=== PATIENT | female | born 1985 | race Caucasian/White ===

== ENCOUNTER → 2017-01-09 | Outpatient (CLI) | payer BC ==
[~2017-01-09] MED LIST: LEVO-217 PO
== END | disposition home or self-care (01) ==
LOC: C.PATHSPEC 10:38
PROVIDERS: ATTEND Obstetrics & Gynecology
DX: N84.1 Polyp of cervix uteri (principal)

== ENCOUNTER → 2017-01-09 | Outpatient (CLI) | payer BC | END | disposition home or self-care (01) | LOC: C.PAPS 10:34 | PROVIDERS: ATTEND Obstetrics & Gynecology | DX: Z01.419 Encounter for gynecological examination (general) (routine) without abnormal findings (principal) ==

== ENCOUNTER → 2017-07-21 | Outpatient (CLI) | payer BC, OTHER ==
[2017-07-24 01:52] LABS: CHLAMYDIA TRACH RNA*** NOT DETECTED (NOT DETECTED); GC (NEIS GONORRHOEAE)RNA** NOT DETECTED (NOT DETECTED); TRICHOMONAS VAGINALIS RNA** NOT DETECTED (NOT DETECTED)
== END | disposition home or self-care (01) ==
LOC: C.LABSPEC 13:20
PROVIDERS: ATTEND Physician Assistant
DX: N94.10 Unspecified dyspareunia (principal)

== ENCOUNTER 2022-10-21 14:15 | Inpatient (IN) ==
[2022-10-21] MEDS ORDERED: OXYTOCIN 30 UNITS/500 ML BAG IV PRN ×2 (16:13)
[2022-10-21] MEDS ORDERED: LIDOCAINE 1% LOCAL 20 ML VIAL INFIL PRN (16:13)
[2022-10-21 17:17] LABS: Hematocrit (blood only) 36.7 % (37.0-47.0); Hemoglobin 12.6 g/dl (12.0-16.0); Mean Corpuscular Hemoglobin 30.7 pg (25.0-34.0); Mean Corpuscular Hgb Conc 34.3 g/dL (32.0-36.0); Mean Corpuscular Volume 89.3 fL (80.0-100.0); Mean Platelet Volume 10.5 fL (9.4-12.4); Platelet Count 217 K/uL (130-400); RDW Coefficient of Variation 14.6 % (11.5-14.5); RDW Standard Deviation 47.4 fL (36.4-46.3); Red Blood Count 4.11 M/uL (4.20-5.40); White Blood Count 7.75 K/ul (4.8-10.8)
[2022-10-21] MEDS: LACTATED RINGER'S 1,000 ML IV PRN ×2 (17:30→23:32)
--- NOTE | 2022-10-21 18:34 | History & Physical Report ---
Date of Service October 21, 2022 Assessment & Plan (1) Insulin controlled gestational diabetes mellitus (GDM) during : (2) Hypothyroidism during : (3) resulting from in vitro fertilization, antepartum: Plan 36 yo at 39 6/7 wga presents for IOL for A2gDm VSS Fetus cat 1 Labor - will start with marshall/pit, 35cc marshall placed after verbal consent obtained. Will start pit as well A2GDM - will start w/ BG q2, q1 in active labor GBS neg epidural prn Admission and Anticipated Discharge Date Admission Date: October 21, 2022 History of Present Illness Chief Complaint: IOL Primary Care Provider: Katherin Bee, 36 yo at 39 6/7 wga presents for IOL for A2GDM. +FM; denies ctx, LOF, VB PNI: A2GDM IVF/ICSI Hx thyroidectomy AMA Past CALL C[facility] DIRECTOR Hx: G1 2020 SAB G2 2020 SAB G3 2021 SAB G4 current denies hx STIs 03/2022 neg cotest, hx LEEP Allergies Allergy/AdvReac Type Severity Reaction Status Date / Time Penicillins Allergy Unknown Rash Verified 10/21/22 16:50 adhesive Allergy Redness of Verified 10/21/22 16:50 Skin Home Medications Medication Instructions Recorded Confirmed Type prenat.vits,tim,lke-veud-sgdnn 1 tab PO DAILY 03/28/21 10/21/22 History cholecalciferol (vitamin D3) PO 06/19/21 10/20/22 History ascorbic acid (vitamin C) PO 03/24/22 10/20/22 History magnesium PO 03/24/22 10/20/22 History super selenium complex PO 03/24/22 10/20/22 History levothyroxine 137 mcg tablet 137 mcg PO .COMPLEX 90 days #45 04/18/22 10/21/22 Rx tabs blood sugar diagnostic (OneTouch #150 ea 05/26/22 10/20/22 Rx Verio test strips) blood-glucose meter (OneTouch #1 ea 05/26/22 10/20/22 Rx Verio Reflect Meter) lancets 33 gauge (OneTouch Delica #150 ea 05/26/22 10/20/22 Rx Lancets) acetone (urine) test (Ketone Urine #50 ea 05/28/22 10/20/22 Rx Test strips) insulin syringe-needle U-100 0.5 #100 ea 07/28/22 10/20/22 Rx mL 30 gauge x 1/2" (BD Insulin Syringe Ultra-Fine) insulin NPH isoph U-100 human 100 See Rx Instructions subcut QAM #2 09/19/22 10/20/22 Rx unit/mL subcutaneous suspension vials (Humulin N NPH U-100 Insulin (isophane susp)) levothyroxine 125 mcg tablet 125 mcg PO .COMPLEX 90 days #45 10/10/22 10/21/22 Rx tabs Patient History Medical History Acne vulgaris Hypothyroidism Miscarriage Ovarian cyst Overweight Papanicolaou smear of cervix with low grade squamous intraepithelial lesion (LGSIL) PCOS (polycystic ovarian syndrome) Thyroid disease Vaginal candidiasis Surgical History H/O colposcopy with cervical biopsy (~2010) H/O LEEP (~2010) H/O oral surgery H/O total thyroidectomy (~09/17/04) Family History Family/Other Breast cancer Ovarian cancer Prostate cancer Father Myocardial infarction Other Diabetes Hepatitis Denies family history of Colonic polyp Social History Smoking Status: Never smoker Hx Alcohol Use: No Hx Substance Use: No Preferred Language: Kinyarwanda Communication Ability: Effective Inventory Coordinator Required: No Beliefs That Will Affect Care: None marital status: marital status details: Maxi (30) [phone] Current Living Situation: Spouse Current Living Situation Comment: lives with Spouse, 2 dogs. 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 Other Information That Helps Us Care for You: No Feels Safe at Home: Yes Safety Concerns: Feels Safe At This Time Assistive Devices: None Physical Exam Genitourinary: OB Exam Abdomen: + vertex (confirmed by bsus) and + estimated weight (7-8) Manual OB Exam: + cervical dilation fingertip, + cervical effacement 50% and + station -2 OB Exam Monitor Tracing: + external FHT monitor used, + external uterine monitor used (q5) and + category I (125/mod/+accel/-decel) Results & Data ([facility]) Vital Signs (Past 12 Hours) Vital Signs Temp Pulse Resp BP 10/21/22 16:15 98.6 F 20 10/21/22 16:59 84 10/21/22 16:59 126/82 10/21/22 16:10 94 H 132/89 Laboratory Results OB Labs: Blood Type O Positive 03/27/22 Antibody Screen NEGATIVE 03/27/22 Hemoglobin 12.1 g/dl (12.0-16.0) 07/31/22 Hematocrit 35.4 % (34.1-44.9) 07/31/22 Mean Corpuscular Volume 91.4 fL (80.0-100.0) 03/27/22 Platelet Count 378 K/uL (130-400) 03/27/22 Varicella-Zoster IgG Antibody 864.50 index 07/02/21 Rubella IgG Antibody Immune (Immune) 03/27/22 Rapid Plasma Reagin Nonreactive (Nonreactive) 03/27/22 Hepatitis B Surface Antigen Neg (Neg) 07/02/21 Hepatitis B Surface Antigen. NON-REACTIVE (NON-REACTIVE) 03/27/22 Hepatitis C Antibody Neg (Neg) 07/02/21 Hepatitis C Antibody (EIA) NON-REACTIVE (NON-REACTIVE) 03/27/22 HIV (1&2) Ab and P24 Ag, 4th Gener Neg (Neg) 07/02/21 HIV (1&2) Ag and Ab Confirmation NON-REACTIVE (NON-REACTIVE) 03/27/22 Glucose 1 Hour 50 gm Load 164 mg/dl (70-130) H 05/08/22 Maternal Serum Alpha Fetoprotein 28.4 ng/mL 05/08/22 OB Optional Labs: Chlamydia trachomatis RNA NOT DETECTED (NOT DETECTED) 03/27/22 Neisseria gonorrhoeae RNA NOT DETECTED (NOT DETECTED) 03/27/22 Thyroid Stimulating Hormone (TSH) 0.957 uIu/ml (0.300-4.500) 08/04/22 Alpha Fetoprotein Triple Screen SEE NOTE 05/08/22 Labs Reviewed: Pt negative for CF/SMA (09/02/21) low risk panorama neg afp failed 2 hr gtt at 16 weeks. gbs neg--ak Diagnostic Findings 09/23 EFW 72% post plac Coding Level of Care Code None Diagnoses Insulin controlled gestational diabetes mellitus (GDM) during O24.414 Hypothyroidism during O99.280; E03.9 resulting from in vitro fertilization, antepartum O09.819
[2022-10-21 20:54] LABS: Albumin Globulin Ratio 1.3 (0.9-2); Albumin Level 3.5 gm/dl (3.4-5.0); BUN Creatinine Ratio 15.1 (10-20); Bilirubin,Total 0.4 mg/dl (0.2-1.0); Calcium 8.7 mg/dl (8.5-10.1); Creatinine Clr Calc Pharmacy 119.8 ml/min; Est GFR (African American) 122.8 ml/min; Globulin 2.8 gm/dl (2.5-4.0); Total Protein 6.3 gm/dl (6.0-8.3)
[2022-10-21 21:33] LABS: Protein Creatinine Ratio Urine 0.2 (0-0.2)
--- NOTE | 2022-10-21 23:13 | Labor Progress Brief Note ---
Date of Service October 21, 2022 Subjective getting uncomfortable w/ balloon Assessment & Plan (1) Insulin controlled gestational diabetes mellitus (GDM) during : (2) Hypothyroidism during : (3) resulting from in vitro fertilization, antepartum: Plan 36 yo at 39 6/7 wga presents for IOL for A2gDm VSS Fetus cat 1 Labor - marshall in place but coming out, feels like this is more painful than ctx themselves. Desires to try stadol A2GDM - will start w/ BG q2, q1 in active labor Elevated BPs after marshall bulb, suspect pain related as intermittent, labs wnl. Continue to monitor GBS neg epidural prn Admission and Anticipated Discharge Date Admission Date: October 21, 2022 Physical Exam Genitourinary: Manual OB Exam: + cervical dilation fingertip, + cervical effacement 50% and + station -2 OB Exam Monitor Tracing: + external FHT monitor used, + external uterine monitor used (q5) and + category I (125/mod/+accel/-decel) balloon partially coming through cervix Results & Data ([facility]) Vital Signs (Past 12 Hours) Vital Signs Temp Pulse Resp BP 10/21/22 19:15 97.9 F 20 10/21/22 16:15 98.6 F 20 10/21/22 23:00 18 10/21/22 23:00 98.1 F 18 10/21/22 23:00 18 10/21/22 23:00 98.1 F 18 10/21/22 22:28 18 10/21/22 22:28 18 10/21/22 22:27 72 10/21/22 22:27 135/84 10/21/22 21:29 18 10/21/22 21:29 18 10/21/22 21:28 68 10/21/22 21:28 139/91 10/21/22 20:18 71 10/21/22 20:18 137/87 10/21/22 20:04 72 10/21/22 20:04 139/103 H 10/21/22 19:46 74 10/21/22 19:46 136/90 10/21/22 19:31 76 10/21/22 19:31 135/88 10/21/22 19:15 81 10/21/22 19:15 153/96 H 10/21/22 18:42 81 10/21/22 18:42 143/90 H 10/21/22 16:59 84 10/21/22 16:59 126/82 10/21/22 16:10 94 H 132/89 Coding Level of Care Code None Diagnoses Insulin controlled gestational diabetes mellitus (GDM) during O24.414 Hypothyroidism during O99.280; E03.9 resulting from in vitro fertilization, antepartum O09.819
[2022-10-21] MEDS: BUTORPHANOL TARTRATE 1 MG/ML VIAL IV PRN (23:29)
[2022-10-22] MEDS: BUTORPHANOL TARTRATE 1 MG/ML VIAL IV PRN (03:42)
[2022-10-22] MEDS: LACTATED RINGER'S 1,000 ML IV PRN ×3 (07:02→18:54)
--- NOTE | 2022-10-22 07:36 | Labor Progress Brief Note ---
Date of Service October 22, 2022 Subjective Feeling better now that balloon was out, pit was up to 18 and still sleeping Assessment & Plan (1) Insulin controlled gestational diabetes mellitus (GDM) during : (2) Hypothyroidism during : (3) resulting from in vitro fertilization, antepartum: Plan 36 yo at 39 6/7 wga presents for IOL for A2gDm VSS Fetus cat 1 Labor - once marshall fell out, pit increased to 18 but ctx spaced out and so pit break was given. STarted back up and now at 6, continue induction A2GDM - will start w/ BG q2, q1 in active labor Elevated BPs after marshall bulb, suspect pain related as intermittent, labs wnl. Now normal after marshall out GBS neg epidural prn Admission and Anticipated Discharge Date Admission Date: October 21, 2022 Physical Exam Genitourinary: Manual OB Exam: + cervical dilation (2-3), + cervical effacement 50% and + station -2 OB Exam Monitor Tracing: + external FHT monitor used, + external uterine monitor used (irreg) and + category I (125/mod/+accel/-decel) Results & Data ([facility]) Vital Signs (Past 12 Hours) Vital Signs Temp Pulse Resp BP Pulse Ox 10/22/22 07:31 90 126/80 10/22/22 07:17 92 H 128/77 10/22/22 06:27 80 116/78 10/22/22 05:56 91 H 99 10/22/22 05:51 81 97 10/22/22 05:52 93 H 92 10/22/22 05:46 82 97 10/22/22 05:41 80 96 10/22/22 05:36 81 97 10/22/22 05:31 80 98 10/22/22 05:27 82 128/79 10/22/22 05:26 90 98 10/22/22 05:21 76 98 10/22/22 05:16 79 97 10/22/22 05:11 81 98 10/22/22 05:08 97 H 92 10/22/22 05:06 89 99 10/22/22 05:01 94 H 98 10/22/22 04:56 89 97 10/22/22 04:51 88 97 10/22/22 04:46 86 97 10/22/22 04:41 83 97 10/22/22 04:36 84 97 03/01/23 04:31 82 97 10/22/22 04:29 16 10/22/22 04:29 16 10/22/22 04:28 80 101/63 10/22/22 04:26 83 97 10/22/22 04:21 86 97 10/22/22 04:16 84 96 10/22/22 04:11 81 96 10/22/22 04:06 85 97 10/22/22 04:01 84 97 10/22/22 04:00 16 10/22/22 04:00 16 10/22/22 03:56 79 97 10/22/22 03:27 75 127/82 10/22/22 02:50 18 10/22/22 02:50 98.1 F 18 10/22/22 02:33 106 H 100 10/22/22 02:28 83 97 10/22/22 02:26 81 132/84 10/22/22 02:23 96 H 100 10/22/22 02:18 87 98 10/22/22 02:13 85 97 10/22/22 02:08 95 H 99 10/22/22 02:03 84 96 10/22/22 01:58 83 99 10/22/22 01:53 81 97 10/22/22 01:48 82 97 10/22/22 01:43 81 97 10/22/22 01:38 76 97 10/22/22 01:33 84 97 10/22/22 01:28 81 97 10/22/22 01:27 72 16 118/65 10/22/22 01:23 82 97 10/22/22 01:18 77 97 10/22/22 01:13 86 96 10/22/22 01:08 80 97 10/22/22 01:03 85 97 10/22/22 00:58 92 H 98 10/22/22 00:53 78 96 10/22/22 00:48 85 98 10/22/22 00:43 79 96 10/22/22 00:38 82 96 10/22/22 00:33 80 96 10/22/22 00:30 16 10/22/22 00:30 16 10/22/22 00:28 84 97 10/22/22 00:27 79 128/71 10/22/22 00:23 89 97 10/22/22 00:18 81 97 10/22/22 00:13 86 97 10/22/22 00:08 80 96 10/22/22 00:03 91 H 97 10/21/22 23:58 96 10/21/22 23:58 82 10/21/22 23:53 97 10/21/22 23:53 80 10/21/22 23:48 97 10/21/22 23:48 79 10/21/22 23:43 96 10/21/22 23:43 80 10/21/22 23:38 95 10/21/22 23:38 83 10/21/22 23:33 98 10/21/22 23:33 78 10/21/22 23:28 98 10/21/22 23:28 77 10/21/22 23:26 78 10/21/22 23:26 137/86 10/21/22 23:00 18 10/21/22 23:00 98.1 F 18 10/21/22 23:00 18 10/21/22 23:00 98.1 F 18 10/21/22 22:28 18 10/21/22 22:28 18 10/21/22 22:27 72 10/21/22 22:27 135/84 10/21/22 21:29 18 10/21/22 21:29 18 10/21/22 21:28 68 10/21/22 21:28 139/91 10/21/22 20:18 71 10/21/22 20:18 137/87 10/21/22 20:04 72 10/21/22 20:04 139/103 H 10/21/22 19:46 74 10/21/22 19:46 136/90 Coding Level of Care Code None Diagnoses Insulin controlled gestational diabetes mellitus (GDM) during O24.414 Hypothyroidism during O99.280; E03.9 resulting from in vitro fertilization, antepartum O09.819
[2022-10-22] MEDS ORDERED: SODIUM CHLORIDE 0.9% INJ 10 ML VIAL ONE (11:49)
[2022-10-22] MEDS ORDERED: BUPIVACAINE 0.25% 30 ML VIAL ONE (11:49)
[2022-10-22] MEDS ORDERED: ePHEDrine sulfate 50 MG/ML AMP ONE (11:49)
[2022-10-22] MEDS ORDERED: LIDOCAINE 2%/EPINEPHRINE 1:200,000 20 ML SDV ONE (11:49)
[2022-10-22] MEDS ORDERED: fentaNYL citrate 100 MCG/2 ML VIAL ONE ×6 (11:49→23:40)
[2022-10-22] MEDS ORDERED: fentaNYL 2MCG/ML ROPIVACAINE 1.25MG/ML 100 ML BAG EPI ONE (11:50)
--- NOTE | 2022-10-22 12:34 | Anesthesiology Consultation ---
Date of Service October 22, 2022 Assessment & Plan Chart Review Chart Review: Acceptable Risk for Labor Epidural Consults Requested none History Height/Weight Height: 5 ft 5 in Weight: 92.533 kg Allergies Allergy/AdvReac Type Severity Reaction Status Date / Time Penicillins Allergy Unknown Rash Verified 10/21/22 16:50 adhesive Allergy Redness of Verified 10/21/22 16:50 Skin Medications Home Medications Medication Instructions Recorded Confirmed Last Taken prenat.vits,tim,ezf-abbc-ymyul 1 tab PO DAILY 03/28/21 10/21/22 10/21/22 12:00 cholecalciferol (vitamin D3) PO 06/19/21 10/20/22 10/21/22 12:00 ascorbic acid (vitamin C) PO 03/24/22 10/20/22 10/21/22 12:00 magnesium PO 03/24/22 10/20/22 10/21/22 12:00 super selenium complex PO 03/24/22 10/20/22 10/21/22 12:00 levothyroxine 137 mcg tablet 137 mcg PO .COMPLEX 90 days #45 04/18/22 10/21/22 10/20/22 07:00 tabs blood sugar diagnostic (OneTouch #150 ea 05/26/22 10/20/22 Unknown Verio test strips) blood-glucose meter (OneTouch #1 ea 05/26/22 10/20/22 Unknown Verio Reflect Meter) lancets 33 gauge (OneTouch Delica #150 ea 05/26/22 10/20/22 Unknown Lancets) acetone (urine) test (Ketone Urine #50 ea 05/28/22 10/20/22 Unknown Test strips) insulin syringe-needle U-100 0.5 #100 ea 07/28/22 10/20/22 Unknown mL 30 gauge x 1/2" (BD Insulin Syringe Ultra-Fine) insulin NPH isoph U-100 human 100 See Rx Instructions subcut QAM #2 09/19/22 10/20/22 10/20/22 21:00 unit/mL subcutaneous suspension vials (Humulin N NPH U-100 Insulin (isophane susp)) levothyroxine 125 mcg tablet 125 mcg PO .COMPLEX 90 days #45 10/10/22 10/21/22 10/21/22 07:00 tabs Active Medications Generic Name Dose Route Start Last Admin Trade Name Lyndon PRN Reason Stop Dose Admin Lactated Ringer's 1,000 mls @ 125 mls/hr 10/21/22 16:13 10/22/22 12:28 Lr IV 10/23/22 16:12 125 mls/hr .Q8H PRN Infusion L&D Protocol Protocol Oxytocin 30 units in 500 mls @ 16 mls/hr 10/21/22 16:13 10/22/22 11:05 Pitocin IV 10/23/22 16:12 0.96 units/hr .Q24H PRN 16 mls/hr Labor Induction/Augmentation Titration Protocol 0.96 UNITS/HR Past Medical History Medical History Acne vulgaris Hypothyroidism Miscarriage Ovarian cyst Overweight Papanicolaou smear of cervix with low grade squamous intraepithelial lesion (LGSIL) PCOS (polycystic ovarian syndrome) Thyroid disease Vaginal candidiasis Past Family History Family History Family/Other Breast cancer Ovarian cancer Prostate cancer Father Myocardial infarction Other Diabetes Hepatitis Denies family history of Colonic polyp Past Surgical History Surgical History H/O colposcopy with cervical biopsy (~2010) H/O LEEP (~2010) H/O oral surgery H/O total thyroidectomy (~09/17/04) Social History Smoking Status: Never smoker Hx Alcohol Use: No Hx Substance Use: No Physical Exam Vital Signs Last Vital Signs Temp 36.6 C 10/22/22 10:18 Pulse 111 H 10/22/22 12:31 Resp 20 10/22/22 11:00 BP 127/77 10/22/22 12:29 Pulse Ox 98 10/22/22 12:31 Testing Laboratory Results 10/21/22 16:34 10/21/22 20:17 10/22/22 10/22/22 10/22/22 07:34 07:06 05:26 POC Glucose 76 64 L* 82 10/22/22 10/22/22 10/22/22 03:31 02:44 00:57 POC Glucose 100 H 68 L* 72
[2022-10-22] MEDS ORDERED: NALBUPHINE HCL INJ 10 MG/ML AMP IV PRN (12:36)
[2022-10-22] MEDS ORDERED: diphenhydrAMINE 50 MG/ML VIAL IV PRN (12:36)
[2022-10-22] MEDS ORDERED: fentaNYL 2MCG/ML ROPIVACAINE 1.25MG/ML 100 ML BAG EPI PRN (12:36)
[2022-10-22] MEDS ORDERED: ePHEDrine sulfate 50 MG/ML AMP IV PRN (12:36)
[2022-10-22] MEDS ORDERED: NALOXONE HCL 0.4 MG/1 ML VIAL/CARP IV PRN (12:36)
[2022-10-22] MEDS ORDERED: NALOXONE HCL 1 MG in SODIUM CHLORIDE 0.9% 1000ML 1,000 ML IV PRN (12:36)
--- NOTE | 2022-10-22 14:38 | Labor Progress Brief Note ---
Date of Service October 22, 2022 Subjective patient now comfortable with epidural pitocin at 16 milliunits cervix 4/80/-2 contractions not recording well. IUPC placed without difficulty Review of Systems All systems reviewed & are unremarkable except as noted in HPI & below Assessment & Plan Admission and Anticipated Discharge Date Admission Date: October 21, 2022 Physical Exam Constitutional: WD/WN, vitals as above Psychiatric: A+Ox3, euthymic affect Genitourinary: OB Exam Abdomen: + vertex and + irregular contractions Manual OB Exam: + cervical dilation 4 cm, + cervical effacement 80% and + station -2 OB Exam Monitor Tracing: + external FHT monitor used, + external uterine monitor used, + category I and + normal FHT variability Results & Data ([facility]) Vital Signs (Past 12 Hours) Vital Signs Temp Pulse Resp BP Pulse Ox 10/22/22 14:31 100 H 99 10/22/22 14:26 88 98 10/22/22 14:21 86 99 10/22/22 14:19 104 H 89 L 10/22/22 14:20 93 H 114/74 10/22/22 14:16 96 H 98 10/22/22 14:11 97 H 96 10/22/22 14:06 83 98 10/22/22 14:05 98.6 F 98 H 20 112/69 10/22/22 14:01 86 98 10/22/22 13:56 95 H 98 10/22/22 13:51 92 H 96 10/22/22 13:50 101 H 128/81 10/22/22 13:46 95 H 98 10/22/22 13:41 88 97 10/22/22 13:36 88 99 10/22/22 13:34 93 H 129/80 10/22/22 13:31 89 98 10/22/22 13:26 89 98 10/22/22 13:21 98 10/22/22 13:21 88 10/22/22 13:21 81 121/77 10/22/22 13:16 103 H 97 10/22/22 13:11 94 H 98 10/22/22 13:06 98 10/22/22 13:06 95 H 10/22/22 13:06 97 H 120/86 10/22/22 13:01 83 98 10/22/22 12:56 98 H 99 10/22/22 12:51 100 H 98 10/22/22 12:50 100 H 18 125/80 10/22/22 12:46 93 H 99 10/22/22 12:38 18 10/22/22 12:38 98.2 F 18 10/22/22 12:41 93 H 98 10/22/22 12:36 106 H 97 10/22/22 12:34 90 121/73 10/22/22 12:31 111 H 98 10/22/22 12:29 104 H 127/77 10/22/22 12:26 106 H 98 10/22/22 12:23 93 H 128/74 10/22/22 12:21 98 10/22/22 12:21 102 H 10/22/22 12:21 97 H 130/83 10/22/22 12:19 91 H 135/80 10/22/22 12:16 96 H 99 10/22/22 12:17 78 141/87 H 10/22/22 12:11 93 H 98 10/22/22 12:10 90 91 10/22/22 12:06 97 H 99 10/22/22 12:04 89 94 10/22/22 12:01 102 H 99 10/22/22 11:59 96 H 146/88 H 10/22/22 11:56 94 10/22/22 11:56 99 H 10/22/22 11:56 97 H 93 10/22/22 11:00 20 10/22/22 11:00 20 10/22/22 10:00 20 10/22/22 10:00 20 10/22/22 10:26 81 129/91 10/22/22 10:18 20 10/22/22 10:18 97.9 F 20 10/22/22 09:26 83 114/70 10/22/22 08:27 81 18 123/80 10/22/22 07:31 90 126/80 10/22/22 07:17 98.4 F 92 H 20 128/77 10/22/22 06:27 80 116/78 10/22/22 05:56 91 H 99 10/22/22 05:51 81 97 10/22/22 05:52 93 H 92 10/22/22 05:46 82 97 10/22/22 05:41 80 96 10/22/22 05:36 81 97 10/22/22 05:31 80 98 10/22/22 05:27 82 128/79 10/22/22 05:26 90 98 10/22/22 05:21 76 98 10/22/22 05:16 79 97 10/22/22 05:11 81 98 10/22/22 05:08 97 H 92 10/22/22 05:06 89 99 10/22/22 05:01 94 H 98 10/22/22 04:56 89 97 10/22/22 04:51 88 97 10/22/22 04:46 86 97 10/22/22 04:41 83 97 10/22/22 04:36 84 97 10/22/22 04:31 82 97 10/22/22 04:29 16 10/22/22 04:29 16 10/22/22 04:28 80 101/63 10/22/22 04:26 83 97 10/22/22 04:21 86 97 10/22/22 04:16 84 96 10/22/22 04:11 81 96 10/22/22 04:06 85 97 10/22/22 04:01 84 97 10/22/22 04:00 16 10/22/22 04:00 16 10/22/22 03:56 79 97 10/22/22 03:27 75 127/82 10/22/22 02:50 18 10/22/22 02:50 98.1 F 18 Coding Level of Care Code None Diagnoses
[2022-10-22] MEDS: LEVOTHYROXINE SODIUM 137 MCG TABLET PO SCH (16:56)
[2022-10-22] MEDS ORDERED: Nursing to Pharmacy Communication SCH (17:15)
--- NOTE | 2022-10-22 17:48 | Communication Note ---
Date of Service: October 22, 2022 pt c/o pain. Epidural bolused with 2% lidocaine 5cc plus fentanyl 100mcg
[2022-10-22] MEDS ORDERED: ONDANSETRON INJ 2 MG/ML 2 ML VIAL IV PRN (18:46)
--- NOTE | 2022-10-22 20:47 | Labor Progress Brief Note ---
Date of Service October 22, 2022 Subjective patient comfortable with epidural analgesia. pitocin just raised to 30 mu and contraction strength and pattern are still not adequate based on IUPC. contractions continue to be sporadic without any consistent pattern.sometimes spacing to 7-10 minutes apart with inadequate [place] units. cervix exam-5cm/100/-2 with molding. FHT's have been reassuring and category 1 with occasional quick mild variables. will place marshall catheter to keep bladder draining. I suspect that this is an LGA baby preventing adequate contraction strength to produce cervical dilation. if no appreciable change in contraction pattern/strength/dilation in the next hour, will proceed with LTCS. patient and her are agreeable with the current plan. Assessment & Plan Admission and Anticipated Discharge Date Admission Date: October 21, 2022 Results & Data ([facility]) Vital Signs (Past 12 Hours) Vital Signs Temp Pulse Resp BP Pulse Ox 10/22/22 19:00 98.6 F 18 10/22/22 20:37 86 137/92 10/22/22 20:36 92 H 98 10/22/22 20:32 85 93 10/22/22 20:31 83 98 10/22/22 20:26 86 97 10/22/22 20:21 96 10/22/22 20:21 84 10/22/22 20:21 77 128/80 10/22/22 20:16 87 99 10/22/22 20:11 93 H 97 10/22/22 20:10 92 H 93 10/22/22 20:06 78 100 10/22/22 20:05 82 119/76 10/22/22 20:04 78 92 10/22/22 20:01 82 98 10/22/22 19:59 85 92 10/22/22 19:56 87 99 10/22/22 19:51 97 10/22/22 19:51 78 10/22/22 19:51 75 124/78 10/22/22 19:46 79 97 10/22/22 19:41 79 96 10/22/22 19:36 95 10/22/22 19:36 79 10/22/22 19:36 78 118/79 10/22/22 19:31 85 98 10/22/22 19:29 76 94 10/22/22 19:26 81 98 10/22/22 19:21 97 10/22/22 19:21 80 10/22/22 19:22 86 92 10/22/22 19:21 77 131/78 10/22/22 19:16 86 100 10/22/22 19:13 83 93 10/22/22 19:11 84 100 10/22/22 19:06 99 10/22/22 19:06 82 10/22/22 19:06 81 120/76 10/22/22 19:01 81 98 10/22/22 18:56 82 100 10/22/22 18:51 82 99 10/22/22 18:52 82 124/84 10/22/22 18:46 100 10/22/22 18:46 88 10/22/22 18:46 86 93 10/22/22 18:41 88 99 10/22/22 18:36 104 H 99 10/22/22 18:37 107 H 92 10/22/22 18:35 86 135/77 10/22/22 18:31 105 H 100 10/22/22 18:26 98 H 100 10/22/22 18:21 97 H 99 10/22/22 18:22 96 H 138/83 10/22/22 18:16 96 H 99 10/22/22 18:11 94 H 100 10/22/22 18:06 104 H 136/90 99 10/22/22 18:01 100 H 100 10/22/22 17:56 96 H 100 10/22/22 17:52 119 H 92 10/22/22 17:51 110 H 100 10/22/22 17:50 94 H 129/71 10/22/22 17:48 113 H 133/85 10/22/22 17:46 99 10/22/22 17:46 81 10/22/22 17:46 81 137/86 10/22/22 17:41 91 H 99 10/22/22 17:36 86 97 10/22/22 17:37 80 131/75 10/22/22 17:33 89 92 10/22/22 17:31 80 98 10/22/22 17:26 80 97 10/22/22 17:21 90 138/90 98 10/22/22 17:16 85 99 10/22/22 17:11 84 99 10/22/22 17:07 104 H 90 10/22/22 17:06 86 98 03//23 17:05 83 20 134/85 10/22/22 17:01 97 10/22/22 17:01 81 10/22/22 17:01 89 91 10/22/22 16:56 83 99 10/22/22 16:51 81 130/80 98 10/22/22 16:46 82 100 10/22/22 16:41 92 H 98 10/22/22 16:36 98 10/22/22 16:36 84 10/22/22 16:36 76 142/77 H 10/22/22 16:31 82 98 10/22/22 16:26 86 98 10/22/22 16:12 20 10/22/22 16:12 98.8 F 20 10/22/22 16:21 88 98 10/22/22 16:20 75 131/87 10/22/22 16:16 76 98 10/22/22 16:11 80 99 10/22/22 16:06 73 99 10/22/22 16:05 72 125/86 10/22/22 16:01 75 98 10/22/22 15:56 87 98 10/22/22 15:51 82 98 10/22/22 15:50 78 131/93 10/22/22 15:46 87 98 10/22/22 15:41 85 97 10/22/22 15:36 88 97 10/22/22 15:37 86 93 10/22/22 15:35 78 129/81 10/22/22 15:31 82 97 10/22/22 15:26 92 H 98 10/22/22 15:23 84 94 10/22/22 15:21 82 95 10/22/22 15:20 80 111/73 10/22/22 15:16 86 96 10/22/22 15:11 83 97 10/22/22 15:06 85 97 10/22/22 15:05 85 117/73 10/22/22 15:01 92 H 96 10/22/22 14:56 96 H 99 10/22/22 14:51 96 H 96 10/22/22 14:50 83 18 119/75 10/22/22 14:46 94 H 100 10/22/22 14:41 89 100 10/22/22 14:36 84 89 L 10/22/22 14:35 88 114/74 0301/23 14:31 100 H 99 10/22/22 14:26 88 98 10/22/22 14:21 86 99 10/22/22 14:19 104 H 89 L 10/22/22 14:20 93 H 114/74 10/22/22 14:16 96 H 98 10/22/22 14:11 97 H 96 10/22/22 14:06 83 98 10/22/22 14:05 98.6 F 98 H 20 112/69 10/22/22 14:01 86 98 10/22/22 13:56 95 H 98 10/22/22 13:51 92 H 96 10/22/22 13:50 101 H 128/81 10/22/22 13:46 95 H 98 10/22/22 13:41 88 97 10/22/22 13:36 88 99 10/22/22 13:34 93 H 129/80 10/22/22 13:31 89 98 10/22/22 13:26 89 98 10/22/22 13:21 98 10/22/22 13:21 88 10/22/22 13:21 81 121/77 10/22/22 13:16 103 H 97 10/22/22 13:11 94 H 98 10/22/22 13:06 98 10/22/22 13:06 95 H 10/22/22 13:06 97 H 120/86 10/22/22 13:01 83 98 10/22/22 12:56 98 H 99 10/22/22 12:51 100 H 98 10/22/22 12:50 100 H 18 125/80 10/22/22 12:46 93 H 99 10/22/22 12:38 18 10/22/22 12:38 98.2 F 18 10/22/22 12:41 93 H 98 10/22/22 12:36 106 H 97 10/22/22 12:34 90 121/73 10/22/22 12:31 111 H 98 10/22/22 12:29 104 H 127/77 10/22/22 12:26 106 H 98 10/22/22 12:23 93 H 128/74 10/22/22 12:21 98 10/22/22 12:21 102 H 10/22/22 12:21 97 H 130/83 10/22/22 12:19 91 H 135/80 10/22/22 12:16 96 H 99 10/22/22 12:17 78 141/87 H 10/22/22 12:11 93 H 98 10/22/22 12:10 90 91 10/22/22 12:06 97 H 99 10/22/22 12:04 89 94 10/22/22 12:01 102 H 99 10/22/22 11:59 96 H 146/88 H 10/22/22 11:56 94 10/22/22 11:56 99 H 10/22/22 11:56 97 H 93 10/22/22 11:00 20 10/22/22 11:00 20 10/22/22 10:00 20 10/22/22 10:00 20 10/22/22 10:26 81 129/91 10/22/22 10:18 20 10/22/22 10:18 97.9 F 20 10/22/22 09:26 83 114/70
--- NOTE | 2022-10-22 21:26 | Communication Note ---
Date of Service: October 22, 2022 C/o pain. Epidural bolused with 2% lidocaine plus fentanyl 100mcg
[2022-10-22] MEDS ORDERED: LACTATED RINGER'S 1,000 ML IV SCH (21:45)
[2022-10-22] MEDS ORDERED: CITRIC ACID/SODIUM CITRATE 15 ML UDC PO ONE (22:00)
[2022-10-22] MEDS ORDERED: MoRPHine SULFATE PF 1 MG/ML 10 ML AMP/VIAL ONE (22:52)
[2022-10-22] MEDS ORDERED: OXYTOCIN 10 UNITS/ML 10ML VIAL ONE (23:35)
[2022-10-22] MEDS ORDERED: PHENYLEPHRINE 100MCG/ML 5ML SYR ONE (23:35)
[2022-10-22] MEDS ORDERED: ePHEDrine sulfate 50 MG/ML SYR ONE (23:35)
[2022-10-22] MEDS ORDERED: HYDROmorphone INJ 2 MG/ML SYR/VIAL ONE (23:57)
[2022-10-23] MEDS ORDERED: KETOROLAC 30 MG/ML VIAL ONE (00:12)
--- NOTE | 2022-10-23 00:14 | Post Operative Brief Note ---
PG Immediate Post Op with CF Date of Surgery October 23, 2022 Pre & Post Diagnosis Operation Date: 10/22/22 21:40 <No data on this case meets the specified criteria> I identified the patient and participated in the time-out.: Yes Procedure Operation Date: 10/22/22 21:40 Actual Procedures p Section in LD(Bilateral) - Ally Cooper MD, FACOG Surgeon Ally Cooper MD, FACOG Price Checker Darya Chakraborty RN Estimated Blood Loss 600 Findings Consistent with Post-Op Diagnosis gravid uterus bilateral ovaries and Fallopian tubes are grossly normal Specimens Specimen Description: 1. [facility] 10/22/22 @ 2320 2. Placenta-hold 3. Cord blood Drains Herrera Catheter Anesthesia Type Spinal Complications none Disposition Accompanied Patient To Recovery: Yes Disposition: L&D
[2022-10-23] MEDS ORDERED: DIPHTHERIA/TETANUS/PERTUSSIS 0.5mL SYR/VIAL (Age 7+yrs) IM ONE (00:16)
[2022-10-23] MEDS ORDERED: SENNA 8.6 MG TAB PO PRN (00:16)
[2022-10-23] MEDS ORDERED: BENZOCAINE 20% AER SPR 82.5 GM CAN EXT PRN (00:16)
[2022-10-23] MEDS ORDERED: MAGNESIUM HYDROXIDE SUSP 30 ML UDC PO PRN (00:16)
[2022-10-23] MEDS ORDERED: HYDROCORTISONE ACETATE 25 MG SUPP PR PRN (00:16)
[2022-10-23] MEDS ORDERED: ePHEDrine sulfate 50 MG/ML AMP IV PRN (00:28)
[2022-10-23] MEDS ORDERED: NALOXONE HCL 0.4 MG/1 ML VIAL/CARP IV PRN (00:28)
[2022-10-23] MEDS ORDERED: NALBUPHINE HCL INJ 10 MG/ML AMP IV PRN (00:28)
[2022-10-23] MEDS ORDERED: NALOXONE HCL 1 MG in SODIUM CHLORIDE 0.9% 1000ML 1,000 ML IV PRN (00:28)
[2022-10-23] MEDS ORDERED: ONDANSETRON INJ 2 MG/ML 2 ML VIAL IV PRN ×2 (00:28→18:28)
[2022-10-23] MEDS ORDERED: NALOXONE HCL 0.08 MG in SYRINGE 1.8 ML IV PRN (00:28)
[2022-10-23] MEDS ORDERED: MEPERIDINE HCL 25 MG/ML CARP/VIAL IV PRN (00:28)
[2022-10-23] MEDS ORDERED: HYDROmorphone INJ 0.5 MG/0.5 ML SYR IV PRN (00:28)
[2022-10-23] MEDS ORDERED: MoRPHine SULFATE PF 1 MG/ML 10 ML AMP/VIAL INT SPINAL ONE (00:28)
[2022-10-23] MEDS ORDERED: diphenhydrAMINE 50 MG/ML VIAL IV PRN ×2 (00:28→18:28)
[2022-10-23] MEDS ORDERED: MoRPHine SULFATE 2 MG/ML CARP IV PRN (00:28)
[2022-10-23] MEDS ORDERED: LACTATED RINGER'S 500 ML IV PRN (00:28)
[2022-10-23] MEDS ORDERED: ACETAMINOPHEN 1,000 MG/100 ML VIAL IV STA (00:29)
[2022-10-23] MEDS ORDERED: SODIUM CHLORIDE 0.9% 1000ML 1,000 ML IV SCH (00:30)
[2022-10-23] MEDS ORDERED: DC INTRASPINAL MORPHINE SCH (00:30)
[2022-10-23] MEDS ORDERED: NO NARCOTICS OR SEDATIVES SCH (00:30)
[2022-10-23] MEDS ORDERED: LACTATED RINGER'S 1,000 ML IV SCH (00:30)
--- NOTE | 2022-10-23 01:01 | Operative Report ---
PG Post Operative Report Pre & Post Diagnosis Operation Date: 10/22/22 21:40 Pre-Op Diagnosis: 1.Arrest of Dilation 2.Arrest of Descent Post-Op Diagnosis: Same as preoperative plus delivery of a viable male . 8lbs 12 ozs. I identified the patient and participated in the time-out.: Yes Procedure Operation Date: 10/22/22 21:40 Actual Procedures p Section in LD(Bilateral) - Ally Cooper MD, FACOG Surgeon Ally Cooper MD, FACOG Supervisor [employer] Darya Chakraborty RN Estimated Blood Loss 650 Findings Consistent with Post-Op Diagnosis Specimens placenta to hold Drains Cai catheter to straight drainage- clear urine at the end of the case Anesthesia Type Spinal Complications none Disposition Accompanied Patient To Recovery: Yes Disposition: L&D Indications Patient is a G1, P0 female who presented for induction of labor at40 weeks because of GDM on insulin. She had a cervical balloon for ripening followed by Pitocin induction. Despite Pitocin at 30 milliunits/min, an effective contraction pattern could not be established. Contraction strength was also noted to be suboptimal as confirmed by [facility]PC. Patient and were counseled on options of either continuing with the labor process or proceeding with section. Her epidural analgesia was intermittently sup-optimal during her labor and prior to the section despite additional bolus, she had minimal pain relief. Since her cervical exam remained unchanged at 5cm dilation with minimal descent of the head, the decision was made to move forward with section under spinal anesthetic because of arrest of dilation and descent as well as maternal intolerance of labor. Their questions were answered to their satisfaction and they were willing to proceed with section. Description of Procedure After the patient received effective spinal anesthetic she was prepped and draped in usual sterile fashion. A low transverse skin incision was made with a scalpel and carried to the fascia with the same scalpel. The fascial incision was then extended with Velasco scissors and the underlying rectus muscles bluntly sharply dissected off of the overlying fascia. The rectus muscle were then bluntly divided along the midline and the underlying peritoneum elevated and entered sharply. The bladder was then taken down off of the anterior surface of the uterus and placed behind the bladder blade. The lower uterine segment was then entered with a scalpel and extended transversely in a blunt manner. The was delivered easily from the vertex presentation out of the pelvis with moderate fundal pressure. After the head was delivered the shoulders were delivered with some difficulty. The rest of the infant delivered easily. He was vigorous and crying and moving all 4 limbs. The cord was clamped and cut and he was handed off to Dr. Moreno who was in attendance with the nursery team. Placenta was then manually removed and the uterus exteriorized and covered with the clean lap sponge. There was some retained membranes present in the uterus and these were removed with ring forceps. The uterine cavity was then swept for any additional tissue and clot. Dilute Pitocin and fundal massage were done to assisted hemostasis. The uterus was then closed in 2 layers in a running locking imbricating fashion. Hemostasis noted to be excellent. The posterior cul-de-sac was suctioned for small amount of blood. Uterus was then placed back inside the abdominal cavity and the uterine incision examined once more and continued to have excellent hemostasis. The rectus muscle were then brought together on the midline with individual stitches of 0 Monocryl. the fascia was then closed in a running fashion with 0 Vicryl. The adipose layer was then irrigated with normal saline. The skin edges were reapproximated doing a subcuticular stitch of 4-0 Vicryl. Mother and infant were doing well after the section and were stable upon arrival back in labor and delivery. I attest to the content of the Intraoperative Record and any orders documented therein. Any exceptions are noted below. OB Procedure Charges 91105
[2022-10-23] MEDS: OXYTOCIN 20 UNITS in LACTATED RINGER'S 1,000 ML IV SCH ×2 (01:04→09:45)
--- NOTE | 2022-10-23 01:09 | Anesthesiology Progress Note ---
Date of Service October 23, 2022 Anesthesia Post Procedure Vital Signs Vital Signs: Temp Pulse Resp BP Pulse Ox 10/23/22 00:50 16 10/23/22 00:40 18 10/23/22 00:30 18 10/23/22 00:20 37.1 C 10/22/22 19:00 37.0 C 18 10/23/22 01:06 123 H 88 L 10/23/22 01:05 131 H 93 10/23/22 01:00 125 H 93 10/23/22 01:01 125 H 135/92 10/23/22 00:55 111 H 89 L 10/23/22 00:54 115 H 88 L 10/23/22 00:50 112 H 138/68 95 10/23/22 00:45 107 H 94 10/23/22 00:40 94 10/23/22 00:40 116 H 10/23/22 00:40 117 H 134/60 10/23/22 00:35 126 H 96 10/23/22 00:30 93 H 134/64 97 10/23/22 00:25 100 H 97 10/23/22 00:21 97 H 136/92 10/23/22 00:20 97 H 95 10/22/22 22:43 96 H 92 10/22/22 22:41 94 H 97 10/22/22 22:36 98 H 96 10/22/22 22:34 102 H 92 10/22/22 22:31 102 H 97 10/22/22 22:28 100 H 92 10/22/22 22:26 102 H 97 10/22/22 22:22 98 H 92 10/22/22 22:21 100 H 99 10/22/22 22:18 92 H 141/101 H 10/22/22 22:16 83 95 10/22/22 22:15 96 H 94 10/22/22 22:11 94 H 96 10/22/22 22:06 106 H 97 10/22/22 22:01 103 H 98 10/22/22 22:02 102 H 146/95 H 10/22/22 21:56 108 H 96 10/22/22 21:51 109 H 97 10/22/22 21:46 119 H 96 10/22/22 21:47 112 H 140/95 10/22/22 21:41 131 H 97 10/22/22 21:36 111 H 91 10/22/22 21:33 114 H 94 10/22/22 21:31 98 10/22/22 21:31 102 H 10/22/22 21:31 97 H 137/84 10/22/22 21:29 93 H 137/84 10/22/22 21:27 100 H 145/87 H 10/22/22 21:26 102 H 98 10/22/22 21:25 96 H 142/88 H 10/22/22 21:21 92 H 127/83 98 10/22/22 21:16 92 H 97 10/22/22 21:11 97 H 96 10/22/22 21:06 91 H 98 10/22/22 21:05 94 H 152/92 H 91 10/22/22 21:01 89 99 10/22/22 20:56 89 99 10/22/22 20:51 104 H 98 10/22/22 20:50 88 141/90 H 10/22/22 20:46 90 99 10/22/22 20:41 86 98 10/22/22 20:37 86 137/92 10/22/22 20:36 92 H 98 10/22/22 20:32 85 93 10/22/22 20:31 83 98 10/22/22 20:26 86 97 10/22/22 20:21 96 10/22/22 20:21 84 10/22/22 20:21 77 128/80 10/22/22 20:16 87 99 10/22/22 20:11 93 H 97 10/22/22 20:10 92 H 93 10/22/22 20:06 78 100 10/22/22 20:05 82 119/76 10/22/22 20:04 78 92 10/22/22 20:01 82 98 10/22/22 19:59 85 92 10/22/22 19:56 87 99 10/22/22 19:51 97 10/22/22 19:51 78 10/22/22 19:51 75 124/78 10/22/22 19:46 79 97 10/22/22 19:41 79 96 10/22/22 19:36 95 10/22/22 19:36 79 10/22/22 19:36 78 118/79 10/22/22 19:31 85 98 10/22/22 19:29 76 94 10/22/22 19:26 81 98 10/22/22 19:21 97 10/22/22 19:21 80 10/22/22 19:22 86 92 10/22/22 19:21 77 131/78 10/22/22 19:16 86 100 10/22/22 19:13 83 93 10/22/22 19:11 84 100 10/22/22 19:06 99 10/22/22 19:06 82 10/22/22 19:06 81 120/76 10/22/22 19:01 81 98 10/22/22 18:56 82 100 10/22/22 18:51 82 99 10/22/22 18:52 82 124/84 10/22/22 18:46 100 10/22/22 18:46 88 10/22/22 18:46 86 93 10/22/22 18:41 88 99 10/22/22 18:36 104 H 99 10/22/22 18:37 107 H 92 10/22/22 18:35 86 135/77 10/22/22 18:31 105 H 100 10/22/22 18:26 98 H 100 10/22/22 18:21 97 H 99 10/22/22 18:22 96 H 138/83 10/22/22 18:16 96 H 99 10/22/22 18:11 94 H 100 10/22/22 18:06 104 H 136/90 99 10/22/22 18:01 100 H 100 10/22/22 17:56 96 H 100 10/22/22 17:52 119 H 92 10/22/22 17:51 110 H 100 10/22/22 17:50 94 H 129/71 10/22/22 17:48 113 H 133/85 10/22/22 17:46 99 10/22/22 17:46 81 10/22/22 17:46 81 137/86 10/22/22 17:41 91 H 99 10/22/22 17:36 86 97 10/22/22 17:37 80 131/75 10/22/22 17:33 89 92 10/22/22 17:31 80 98 10/22/22 17:26 80 97 10/22/22 17:21 90 138/90 98 10/22/22 17:16 85 99 10/22/22 17:11 84 99 10/22/22 17:07 104 H 90 10/22/22 17:06 86 98 10/22/22 17:05 83 20 134/85 10/22/22 17:01 97 10/22/22 17:01 81 10/22/22 17:01 89 91 10/22/22 16:56 83 99 10/22/22 16:51 81 130/80 98 10/22/22 16:46 82 100 10/22/22 16:41 92 H 98 10/22/22 16:36 98 10/22/22 16:36 84 10/22/22 16:36 76 142/77 H 10/22/22 16:31 82 98 10/22/22 16:26 86 98 10/22/22 16:12 20 10/22/22 16:12 37.1 C 20 10/22/22 16:21 88 98 10/22/22 16:20 75 131/87 10/22/22 16:16 76 98 10/22/22 16:11 80 99 10/22/22 16:06 73 99 10/22/22 16:05 72 125/86 10/22/22 16:01 75 98 10/22/22 15:56 87 98 10/22/22 15:51 82 98 10/22/22 15:50 78 131/93 10/22/22 15:46 87 98 10/22/22 15:41 85 97 10/22/22 15:36 88 97 10/22/22 15:37 86 93 10/22/22 15:35 78 129/81 10/22/22 15:31 82 97 10/22/22 15:26 92 H 98 10/22/22 15:23 84 94 10/22/22 15:21 82 95 10/22/22 15:20 80 111/73 10/22/22 15:16 86 96 10/22/22 15:11 83 97 10/22/22 15:06 85 97 10/22/22 15:05 85 117/73 10/22/22 15:01 92 H 96 10/22/22 14:56 96 H 99 10/22/22 14:51 96 H 96 10/22/22 14:50 83 18 119/75 10/22/22 14:46 94 H 100 10/22/22 14:41 89 100 10/22/22 14:36 84 89 L 10/22/22 14:35 88 114/74 10/22/22 14:31 100 H 99 10/22/22 14:26 88 98 10/22/22 14:21 86 99 10/22/22 14:19 104 H 89 L 10/22/22 14:20 93 H 114/74 10/22/22 14:16 96 H 98 10/22/22 14:11 97 H 96 10/22/22 14:06 83 98 10/22/22 14:05 37.0 C 98 H 20 112/69 10/22/22 14:01 86 98 10/22/22 13:56 95 H 98 10/22/22 13:51 92 H 96 10/22/22 13:50 101 H 128/81 10/22/22 13:46 95 H 98 10/22/22 13:41 88 97 10/22/22 13:36 88 99 10/22/22 13:34 93 H 129/80 10/22/22 13:31 89 98 10/22/22 13:26 89 98 10/22/22 13:21 98 10/22/22 13:21 88 10/22/22 13:21 81 121/77 10/22/22 13:16 103 H 97 10/22/22 13:11 94 H 98 10/22/22 13:06 98 10/22/22 13:06 95 H 10/22/22 13:06 97 H 120/86 10/22/22 13:01 83 98 10/22/22 12:56 98 H 99 10/22/22 12:51 100 H 98 10/22/22 12:50 100 H 18 125/80 10/22/22 12:46 93 H 99 10/22/22 12:38 18 10/22/22 12:38 36.8 C 18 10/22/22 12:41 93 H 98 10/22/22 12:36 106 H 97 10/22/22 12:34 90 121/73 10/22/22 12:31 111 H 98 10/22/22 12:29 104 H 127/77 10/22/22 12:26 106 H 98 10/22/22 12:23 93 H 128/74 10/22/22 12:21 98 10/22/22 12:21 102 H 10/22/22 12:21 97 H 130/83 10/22/22 12:19 91 H 135/80 10/22/22 12:16 96 H 99 10/22/22 12:17 78 141/87 H 10/22/22 12:11 93 H 98 10/22/22 12:10 90 91 10/22/22 12:06 97 H 99 10/22/22 12:04 89 94 10/22/22 12:01 102 H 99 10/22/22 11:59 96 H 146/88 H 10/22/22 11:56 94 10/22/22 11:56 99 H 10/22/22 11:56 97 H 93 10/22/22 11:00 20 10/22/22 11:00 20 10/22/22 10:00 20 10/22/22 10:00 20 10/22/22 10:26 81 129/91 10/22/22 10:18 20 10/22/22 10:18 36.6 C 20 10/22/22 09:26 83 114/70 10/22/22 08:27 81 18 123/80 10/22/22 07:31 90 126/80 10/22/22 07:17 36.9 C 92 H 20 128/77 10/22/22 06:27 80 116/78 10/22/22 05:56 91 H 99 10/22/22 05:51 81 97 10/22/22 05:52 93 H 92 10/22/22 05:46 82 97 10/22/22 05:41 80 96 10/22/22 05:36 81 97 10/22/22 05:31 80 98 10/22/22 05:27 82 128/79 10/22/22 05:26 90 98 10/22/22 05:21 76 98 10/22/22 05:16 79 97 10/22/22 05:11 81 98 10/22/22 05:08 97 H 92 10/22/22 05:06 89 99 10/22/22 05:01 94 H 98 10/22/22 04:56 89 97 10/22/22 04:51 88 97 10/22/22 04:46 86 97 10/22/22 04:41 83 97 10/22/22 04:36 84 97 10/22/22 04:31 82 97 10/22/22 04:29 16 10/22/22 04:29 16 10/22/22 04:28 80 101/63 10/22/22 04:26 83 97 10/22/22 04:21 86 97 10/22/22 04:16 84 96 10/22/22 04:11 81 96 10/22/22 04:06 85 97 10/22/22 04:01 84 97 10/22/22 04:00 16 10/22/22 04:00 16 10/22/22 03:56 79 97 10/22/22 03:27 75 127/82 10/22/22 02:50 18 10/22/22 02:50 36.7 C 18 10/22/22 02:33 106 H 100 10/22/22 02:28 83 97 10/22/22 02:26 81 132/84 10/22/22 02:23 96 H 100 10/22/22 02:18 87 98 10/22/22 02:13 85 97 10/22/22 02:08 95 H 99 10/22/22 02:03 84 96 10/22/22 01:58 83 99 10/22/22 01:53 81 97 10/22/22 01:48 82 97 10/22/22 01:43 81 97 10/22/22 01:38 76 97 10/22/22 01:33 84 97 10/22/22 01:28 81 97 10/22/22 01:27 72 16 118/65 10/22/22 01:23 82 97 10/22/22 01:18 77 97 10/22/22 01:13 86 96 Pain Intensity Abdomen: Pain Intensity: 4 Transfer of Care Handoff Completed per policy Notes Mental Status: alert / awake / arousable and participated in evaluation Nausea / Vomiting: adequately controlled Pain: adequately controlled Airway Patency, RR, SpO2: stable & adequate BP & HR: stable & adequate Hydration State: stable & adequate Neuraxial Anesthesia: was administered and sensory block is resolving Anesthetic Complications: no major complications apparent and Pt Satisfied with anesthetic care
[2022-10-23] MEDS: LEVOTHYROXINE SODIUM 125 MCG TABLET PO SCH (06:12)
[2022-10-23] MEDS: KETOROLAC 30 MG/ML VIAL IV PRN ×2 (06:14→11:53)
--- NOTE | 2022-10-23 06:21 | Obstetrical Progress Note ---
Date of Service <Kalpana Wallace MD - Last Filed: 10/23/22 07:53> October 23, 2022 Assessment & Plan <Kalpana Wallace MD - Last Filed: 10/23/22 07:53> (1) care following delivery: 36 y/o female who presented for IOL, contractions were inadequate even with pitocin to aid in progression of labor thus a was performed. P atient is POD1. Satisfactory post- progress. Tolerating PO. Encourage ambulation. c/b GDM on insulin - will need repeat GTT post <Ally Cooper MD, FACOG - Last Filed: 10/23/22 08:03> (1) care following delivery: Subjective <Kalpana Wallace MD - Last Filed: 10/23/22 07:53> Ambulation: ambulating normally Voiding: no voiding problems Passing Gas:: Yes Diet Tolerance:: regular diet Lochia:: Small Feeding Type:: breast feeding Physical Exam <Kalpana Wallace MD - Last Filed: 10/23/22 07:53> Gen: well appearing female in NAD HEENT: AT NC Resp: CTAB, No increased work of breathing CV: RRR, no m/r/g, no calf tenderness : uterus firm, non-tender at the level of the umbilicus, wound c/d/i no erythema/discharge Psych: appropriate mood and affect Neuro: alert and oriented Results & Data ([facility]) <Kalpana Wallace MD - Last Filed: 10/23/22 07:53> Vital Signs (Past 12 Hours) Vital Signs Temp Pulse Pulse Resp BP BP Pulse Ox 10/23/22 06:04 18 95 10/23/22 05:00 18 95 10/23/22 04:00 18 96 10/23/22 02:55 36.7 C 95 H 18 161/87 H 97 10/23/22 02:55 18 97 10/23/22 01:20 37.1 C 18 10/23/22 01:10 14 10/23/22 01:00 16 10/23/22 00:50 16 10/23/22 00:40 18 10/23/22 00:30 18 10/23/22 00:20 37.1 C 10/22/22 19:00 37.0 C 18 10/23/22 02:25 86 99 10/23/22 02:24 90 161/87 H 10/23/22 02:20 95 H 97 10/23/22 02:15 86 97 10/23/22 02:10 91 H 149/79 H 97 10/23/22 02:05 101 H 99 10/23/22 02:00 95 H 140/82 95 10/23/22 01:55 99 H 96 10/23/22 01:50 83 148/88 H 97 10/23/22 01:45 76 91 10/23/22 01:41 87 167/102 H 10/23/22 01:40 93 H 91 10/23/22 01:35 92 H 96 10/23/22 01:32 106 H 132/75 10/23/22 01:30 108 H 94 10/23/22 01:25 123 H 94 10/23/22 01:20 96 10/23/22 01:20 112 H 10/23/22 01:20 111 H 121/78 10/23/22 01:15 116 H 95 10/23/22 01:10 117 H 123/78 94 10/23/22 01:06 123 H 88 L 10/23/22 01:05 131 H 93 10/23/22 01:00 125 H 93 10/23/22 01:01 125 H 135/92 10/23/22 00:55 111 H 89 L 10/23/22 00:54 115 H 88 L 10/23/22 00:50 112 H 138/68 95 10/23/22 00:45 107 H 94 10/23/22 00:40 94 10/23/22 00:40 116 H 10/23/22 00:40 117 H 134/60 10/23/22 00:35 126 H 96 10/23/22 00:30 93 H 134/64 97 10/23/22 00:25 100 H 97 10/23/22 00:21 97 H 136/92 10/23/22 00:20 97 H 95 10/22/22 22:43 96 H 92 10/22/22 22:41 94 H 97 10/22/22 22:36 98 H 96 10/22/22 22:34 102 H 92 10/22/22 22:31 102 H 97 10/22/22 22:28 100 H 92 10/22/22 22:26 102 H 97 10/22/22 22:22 98 H 92 10/22/22 22:21 100 H 99 10/22/22 22:18 92 H 141/101 H 10/22/22 22:16 83 95 10/22/22 22:15 96 H 94 10/22/22 22:11 94 H 96 10/22/22 22:06 106 H 97 10/22/22 22:01 103 H 98 10/22/22 22:02 102 H 146/95 H 10/22/22 21:56 108 H 96 10/22/22 21:51 109 H 97 10/22/22 21:46 119 H 96 10/22/22 21:47 112 H 140/95 10/22/22 21:41 131 H 97 10/22/22 21:36 111 H 91 10/22/22 21:33 114 H 94 10/22/22 21:31 98 10/22/22 21:31 102 H 10/22/22 21:31 97 H 137/84 10/22/22 21:29 93 H 137/84 10/22/22 21:27 100 H 145/87 H 10/22/22 21:26 102 H 98 10/22/22 21:25 96 H 142/88 H 10/22/22 21:21 92 H 127/83 98 10/22/22 21:16 92 H 97 10/22/22 21:11 97 H 96 10/22/22 21:06 91 H 98 10/22/22 21:05 94 H 152/92 H 91 10/22/22 21:01 89 99 10/22/22 20:56 89 99 10/22/22 20:51 104 H 98 10/22/22 20:50 88 141/90 H 10/22/22 20:46 90 99 10/22/22 20:41 86 98 10/22/22 20:37 86 137/92 10/22/22 20:36 92 H 98 10/22/22 20:32 85 93 10/22/22 20:31 83 98 10/22/22 20:26 86 97 10/22/22 20:21 96 10/22/22 20:21 84 10/22/22 20:21 77 128/80 10/22/22 20:16 87 99 10/22/22 20:11 93 H 97 10/22/22 20:10 92 H 93 10/22/22 20:06 78 100 10/22/22 20:05 82 119/76 10/22/22 20:04 78 92 10/22/22 20:01 82 98 10/22/22 19:59 85 92 10/22/22 19:56 87 99 10/22/22 19:51 97 10/22/22 19:51 78 10/22/22 19:51 75 124/78 10/22/22 19:46 79 97 10/22/22 19:41 79 96 10/22/22 19:36 95 10/22/22 19:36 79 10/22/22 19:36 78 118/79 10/22/22 19:31 85 98 10/22/22 19:29 76 94 10/22/22 19:26 81 98 10/22/22 19:21 97 10/22/22 19:21 80 10/22/22 19:22 86 92 10/22/22 19:21 77 131/78 10/22/22 19:16 86 100 10/22/22 19:13 83 93 10/22/22 19:11 84 100 10/22/22 19:06 99 10/22/22 19:06 82 10/22/22 19:06 81 120/76 10/22/22 19:01 81 98 10/22/22 18:56 82 100 10/22/22 18:51 82 99 10/22/22 18:52 82 124/84 10/22/22 18:46 100 10/22/22 18:46 88 10/22/22 18:46 86 93 10/22/22 18:41 88 99 10/22/22 18:36 104 H 99 10/22/22 18:37 107 H 92 10/22/22 18:35 86 135/77 10/22/22 18:31 105 H 100 10/22/22 18:26 98 H 100 10/22/22 18:21 97 H 99 10/22/22 18:22 96 H 138/83 O2 Del Method 10/23/22 06:04 10/23/22 05:00 10/23/22 04:00 10/23/22 02:55 Room Air 10/23/22 02:55 10/23/22 01:20 10/23/22 01:10 10/23/22 01:00 10/23/22 00:50 10/23/22 00:40 10/23/22 00:30 10/23/22 00:20 10/22/22 19:00 10/23/22 02:25 10/23/22 02:24 10/23/22 02:20 10/23/22 02:15 10/23/22 02:10 10/23/22 02:05 10/23/22 02:00 10/23/22 01:55 10/23/22 01:50 10/23/22 01:45 10/23/22 01:41 10/23/22 01:40 10/23/22 01:35 10/23/22 01:32 10/23/22 01:30 10/23/22 01:25 10/23/22 01:20 10/23/22 01:20 10/23/22 01:20 10/23/22 01:15 10/23/22 01:10 10/23/22 01:06 10/23/22 01:05 10/23/22 01:00 10/23/22 01:01 10/23/22 00:55 10/23/22 00:54 10/23/22 00:50 10/23/22 00:45 10/23/22 00:40 10/23/22 00:40 10/23/22 00:40 10/23/22 00:35 10/23/22 00:30 10/23/22 00:25 10/23/22 00:21 10/23/22 00:20 10/22/22 22:43 10/22/22 22:41 10/22/22 22:36 10/22/22 22:34 10/22/22 22:31 10/22/22 22:28 10/22/22 22:26 10/22/22 22:22 10/22/22 22:21 10/22/22 22:18 10/22/22 22:16 10/22/22 22:15 10/22/22 22:11 10/22/22 22:06 10/22/22 22:01 10/22/22 22:02 10/22/22 21:56 10/22/22 21:51 10/22/22 21:46 10/22/22 21:47 10/22/22 21:41 10/22/22 21:36 10/22/22 21:33 10/22/22 21:31 10/22/22 21:31 10/22/22 21:31 10/22/22 21:29 10/22/22 21:27 10/22/22 21:26 10/22/22 21:25 10/22/22 21:21 10/22/22 21:16 10/22/22 21:11 10/22/22 21:06 10/22/22 21:05 10/22/22 21:01 10/22/22 20:56 10/22/22 20:51 10/22/22 20:50 10/22/22 20:46 10/22/22 20:41 10/22/22 20:37 10/22/22 20:36 10/22/22 20:32 10/22/22 20:31 10/22/22 20:26 10/22/22 20:21 10/22/22 20:21 10/22/22 20:21 10/22/22 20:16 10/22/22 20:11 10/22/22 20:10 10/22/22 20:06 10/22/22 20:05 10/22/22 20:04 10/22/22 20:01 10/22/22 19:59 10/22/22 19:56 10/22/22 19:51 10/22/22 19:51 10/22/22 19:51 10/22/22 19:46 10/22/22 19:41 10/22/22 19:36 10/22/22 19:36 10/22/22 19:36 10/22/22 19:31 10/22/22 19:29 10/22/22 19:26 10/22/22 19:21 10/22/22 19:21 10/22/22 19:22 10/22/22 19:21 10/22/22 19:16 10/22/22 19:13 10/22/22 19:11 10/22/22 19:06 10/22/22 19:06 10/22/22 19:06 10/22/22 19:01 10/22/22 18:56 10/22/22 18:51 10/22/22 18:52 10/22/22 18:46 10/22/22 18:46 10/22/22 18:46 10/22/22 18:41 10/22/22 18:36 10/22/22 18:37 10/22/22 18:35 10/22/22 18:31 10/22/22 18:26 10/22/22 18:21 10/22/22 18:22 Laboratory Results 10/21/22 16:34 10/21/22 20:17 <Ally Cooper MD, FACOG - Last Filed: 10/23/22 08:03> Co-Signing Physician Notes Resident Physician Supervision Note: I interviewed and examined the patient. Discussed with Dr. Wallace and agree with findings and plan as documented in the note. Any exceptions or clarifications are listed here: [None] Documented By: Ally Cooper MD, FACOG Resident Activity Tracking <Kalpana Wallace MD - Last Filed: 10/23/22 07:53> Resident Involvement: Resident Care Provided Care Provided: OB Delivery
[2022-10-23] MEDS ORDERED: LEVOTHYROXINE SODIUM 137 MCG TABLET PO SCH (06:30)
[2022-10-23] MEDS: SIMETHICONE 80 MG CHEW PO SCH ×4 (09:44→20:49)
[2022-10-23] MEDS: DOCUSATE SODIUM 100 MG CAP PO SCH ×2 (09:44→20:49)
[2022-10-23] MEDS: PRENATAL VITAMIN 1 TAB PO SCH (09:44)
[2022-10-23] MEDS: FERROUS SULFATE 325 MG TAB PO SCH (09:44)
[2022-10-23] MEDS ORDERED: diphenhydrAMINE Capsule 25 MG CAP PO PRN (18:28)
[2022-10-23] MEDS ORDERED: MEPERIDINE HCL 50 MG/ML CARP IV PRN (18:28)
[2022-10-23] MEDS ORDERED: PROMETHAZINE HCL 25 MG in SODIUM CHLORIDE 0.9% 50 ML IV PRN (18:28)
[2022-10-23] MEDS: oxyCODONE/ACETAMINOPHEN 5mg/325mg TAB PO PRN ×2 (18:31→23:08)
[2022-10-23] MEDS: IBUPROFEN 600 MG TAB PO PRN ×2 (18:32→23:09)
--- NOTE | 2022-10-24 00:09 | Obstetrical Progress Note ---
Date of Service October 24, 2022 Assessment & Plan (1) care following delivery: 36 y/o female who presented for IOL, contractions were inadequate even with pitocin to aid in progression of labor thus a was performed. Patient is POD2. Satisfactory post- progress. Tolerating PO. Encourage ambulation. c/b GDM on insulin - will need repeat GTT post Subjective Ambulation: ambulating normally Voiding: no voiding problems Passing Gas:: Yes Diet Tolerance:: regular diet Lochia:: Small Feeding Type:: breast feeding Physical Exam Gen: well appearing female in NAD HEENT: AT NC Resp: CTAB, No increased work of breathing CV: RRR, no m/r/g, no calf tenderness : uterus firm, non-tender at the level of the umbilicus, wound c/d/i no erythema/discharge Psych: appropriate mood and affect Neuro: alert and oriented Results & Data ([facility]) Vital Signs (Past 12 Hours) Vital Signs Temp Pulse Resp BP BP Pulse Ox O2 Del Method 10/23/22 19:03 37 C 106 H 18 120/79 96 Room Air 10/23/22 18:08 16 99 10/23/22 17:00 18 98 10/23/22 16:00 18 99 10/23/22 15:00 18 96 10/23/22 15:30 36.9 C 94 H 18 120/74 96 Room Air 10/23/22 14:00 16 99 10/23/22 13:00 16 95 Resident Activity Tracking Resident Involvement: Resident Care Provided Care Provided: OB Delivery
[2022-10-24] MEDS: oxyCODONE/ACETAMINOPHEN 5mg/325mg TAB PO PRN ×5 (03:28→22:35)
[2022-10-24] MEDS: IBUPROFEN 600 MG TAB PO PRN ×5 (03:29→22:35)
[2022-10-24] MEDS: LEVOTHYROXINE SODIUM 137 MCG TABLET PO SCH (06:24)
[2022-10-24 07:16] LABS: Basophils # (auto) 0.02 K/uL (0-0.2); Basophils % (auto) 0.2 %; Eosinophils # (auto) 0.08 K/uL (0-0.50); Eosinophils % (auto) 0.9 %; Hematocrit (blood only) 28.5 % (37.0-47.0); Hemoglobin 9.5 g/dl (12.0-16.0); Immature Granulocytes # (auto) 0.06 K/uL (0.01-0.20); Immature Granulocytes % (auto) 0.7 %; Lymphocytes # (auto) 1.92 K/uL (1.2-3.4); Lymphocytes % (auto) 21.3 %; Mean Corpuscular Hemoglobin 30.8 pg (25.0-34.0); Mean Corpuscular Hgb Conc 33.3 g/dL (32.0-36.0); Mean Corpuscular Volume 92.5 fL (80.0-100.0); Mean Platelet Volume 10.3 fL (9.4-12.4); Monocytes # (auto) 0.68 K/uL (0.11-0.59); Monocytes % (auto) 7.5 %; Neutrophils # (auto) 6.25 K/uL (1.40-6.50); Neutrophils % (auto) 69.4 %; Platelet Count 194 K/uL (130-400); RDW Coefficient of Variation 14.9 % (11.5-14.5); RDW Standard Deviation 50.2 fL (36.4-46.3); Red Blood Count 3.08 M/uL (4.20-5.40); White Blood Count 9.01 K/ul (4.8-10.8)
[2022-10-24] MEDS: FERROUS SULFATE 325 MG TAB PO SCH (08:00)
[2022-10-24] MEDS: SIMETHICONE 80 MG CHEW PO SCH ×4 (08:00→20:18)
[2022-10-24] MEDS: PRENATAL VITAMIN 1 TAB PO SCH (08:00)
[2022-10-24] MEDS: DOCUSATE SODIUM 100 MG CAP PO SCH ×2 (08:00→20:17)
[2022-10-24] MEDS ORDERED: bisacodyL 5 MG TABEC PO SCH (20:00)
[2022-10-25] MEDS ORDERED: bisacodyL 10 MG SUPP PR PRN (00:16)
[2022-10-25] MEDS: LEVOTHYROXINE SODIUM 125 MCG TABLET PO SCH (06:26)
[2022-10-25] MEDS: SIMETHICONE 80 MG CHEW PO SCH (07:10)
[2022-10-25] MEDS: oxyCODONE/ACETAMINOPHEN 5mg/325mg TAB PO PRN ×2 (07:11→11:37)
[2022-10-25] MEDS: IBUPROFEN 600 MG TAB PO PRN ×2 (07:12→11:38)
[2022-10-25] MEDS: FERROUS SULFATE 325 MG TAB PO SCH (07:13)
[2022-10-25] MEDS: DOCUSATE SODIUM 100 MG CAP PO SCH (07:13)
[2022-10-25] MEDS: PRENATAL VITAMIN 1 TAB PO SCH (07:13)
[2022-10-25 07:50] LABS: Hematocrit (blood only) 28.2 % (37.0-47.0); Hemoglobin 9.3 g/dl (12.0-16.0)
--- NOTE | 2022-10-25 07:50 | Obstetrical Progress Note ---
Date of Service October 25, 2022 Assessment & Plan (1) care following delivery: day 3 status post primary . Patient doing well. Stable for discharge. Subjective Ambulation: ambulating normally Voiding: no voiding problems Passing Gas:: Yes Diet Tolerance:: regular diet Lochia:: Moderate Feeding Type:: breast feeding Physical Exam Constitutional WD/WN, vitals as above Respiratory normal respiratory effort; no respiratory distress and no labored breathing Gastrointestinal (Abdomen) Inspection/Auscultation: abdomen normal to inspection and + abdomen distended ( mildly distended from gas) Percussion/Palpation: abdomen soft; abdomen nontender, no guarding and abdomen not rigid incision clean, dry and intact Genitourinary OB Exam Abdomen: + fundal height Fundus: + firm and + relation to umbilicus (Below); not tender or not boggy
--- NOTE | 2022-10-27 11:04 | Discharge Summary (DS) ---
DATE OF DISCHARGE: 10/25/2022. PRINCIPAL DIAGNOSES: Intrauterine at 40+ weeks, failed induction for post-term , arrest of dilation and descent. PRINCIPAL PROCEDURES: Primary low transverse section with delivery of an 8 pound 12 ounce . BRIEF HISTORY: The patient is a G4, P 0-0-3-0 female who had presented at 40 weeks for induction of labor because of gestational diabetes, on insulin. She had a cervical balloon for ripening prior to the Pitocin induction. Despite Pitocin at 30 milliunits of rate, an effective contraction pattern could not be established. An IUPC was placed and contraction strength was noted to be suboptimal ans could not be improved on maximum dose of pitocin.. Also, complicating the labor was inadequate pain relief- epidural analgesia was intermittently suboptimal and just prior to her section it continued to be ineffective. She progressed to 5 cm dilated and remained at that dilation as well as -3 station for over 3 hours prior to moving forward with a section. This was done under spinal anesthetic because of the suboptimal analgesia she obtained with the epidural. The section was done without any complications. She remained afebrile throughout her hospital course. She was eating regular diet and ambulating and voiding without difficulty on her first postop day. She had good pain relief with Percocet and Motrin. She was sent home in good condition on her third postop day. Hemoglobin on admission was 12.6, hematocrit 36.7. First postop day hemoglobin 9.5, hematocrit of 28.5. Second postop day, hemoglobin 9.3, hematocrit 28.2. She was sent home with prescriptions for Percocet 1 tablet p.o. q.4-6 hours p.r.n. pain, Motrin 600 mg p.o. q.6 hours p.r.n. pain. She is to call for any temperature of 101 degrees or higher, heavy vaginal bleeding, burning with urination, increased redness, drainage or pain in her incision, calf tenderness or any other concerns. She will be seen in the office in 6 weeks for visit. Job ID: [id number] [facility]
== END 2022-10-25 11:45 | disposition home or self-care (01) | DRG 788 ==
LOC: 4S1 15:59 → 4E2 10-23 02:56

== ENCOUNTER 2024-01-01 00:21 | Inpatient (IN) ==
--- NOTE | 2023-12-16 13:19 | Anesthesiology Consultation ---
Date of Service December 16, 2023 Assessment & Plan (1) Encounter for pre-operative examination: Infectious disease screening: Per assessment on 12/16/23: No known infectious disease contacts or current infectious disease symptoms. No noted recent Covid positive test result. Chart Review Chart Review: freelance data entry initiated History Surgery Operation Date: 01/01/24 07:30 Proposed Procedures p Section (Delivery of Baby Through Abdominal Incision) - Tea Nieto DO s with Bilateral Tubal Ligation - Tea Nieto DO Height/Weight Height: 5 ft 5 in Weight: 90.718 kg Allergies Allergy/AdvReac Type Severity Reaction Status Date / Time adhesive Allergy Mild Skin Verified 12/16/23 14:27 redness Penicillins Allergy Mild Rash Verified 12/16/23 14:27 Medications Home Medications Medication Instructions Recorded Confirmed Last Taken prenat.vits,tim,[id number] 1 tab PO QDL 03/28/21 12/16/23 10/21/22 12:00 acetone (urine) test (Ketone Urine #50 ea 07/02/23 12/16/23 Unknown Test strips) blood sugar diagnostic (OneTouch #150 ea 07/02/23 12/16/23 Unknown Verio test strips) blood-glucose meter (OneTouch #1 ea 07/02/23 12/16/23 Unknown Verio Reflect Meter) lancets 33 gauge (OneTouch Delica #150 ea 07/02/23 12/16/23 Unknown Plus Lancet) pen needle, diabetic 32 gauge x #100 ea 07/24/23 12/16/23 Unknown 5/32" (BD Ultra-Fine Aggie Pen Needle) cholecalciferol (vitamin D3) 25 25 mcg PO QAM 12/16/23 12/16/23 Unknown mcg (1,000 unit) tablet (Vitamin D3) fluoxetine 20 mg tablet 20 mg PO QAM 12/16/23 12/16/23 Unknown insulin NPH isoph U-100 human 100 30 unit subcut HS 12/16/23 12/16/23 Unknown unit/mL (3 mL) subcutaneous pen (Humulin N NPH U-100 Insulin KwikPen) levothyroxine 125 mcg tablet 125 mcg PO 6XWK 12/16/23 12/16/23 Unknown levothyroxine 125 mcg tablet 250 mcg PO WK 12/16/23 12/16/23 Unknown magnesium 250 mg tablet 250 mg PO QDL 12/16/23 12/16/23 Unknown Past Medical History Medical History History of COVID-19 07/2023--mild symptoms, no symptoms now History of Graves' disease s/p thyroidectomy at age 18/19 History of depression Hypothyroidism Insulin controlled gestational diabetes mellitus (GDM) during Overweight PCOS (polycystic ovarian syndrome) Pruritus of Past Family History Family History Family/Other Ovarian cancer Prostate cancer Breast cancer Father Myocardial infarction Other Diabetes Hepatitis No family history of adverse response to anesthesia Denies family history of Colonic polyp Past Surgical History Surgical History H/O colposcopy with cervical biopsy (~2010) H/O LEEP (~2010) H/O total thyroidectomy (~2004) History of anesthesia reaction Perioperative pain with 10/2022 with SAB, "they had to give me extra pain medication during " History of esophagogastroduodenoscopy (EGD) History of surgical procedure on mouth I&D r/t jaw infection History of wisdom tooth extraction S/P section Social History Smoking Status: Never smoker Do You Dip or Chew Tobacco: No Hx Alcohol Use: No Hx Substance Use: No substance use type: does not use Lab Results Anesthesia Preop Results Results Anesthesia Widget: Hgb 10.9 g/dl (12.0-16.0) L 10/26/23 Hct 32.0 % (37.0-47.0) L 10/26/23 TSH 2.644 uIu/ml (0.300-4.500) 12/16/23 Free T4 0.67 ng/dl (0.61-1.60) 10/26/23
--- NOTE | 2023-12-31 13:35 | History & Physical Report ---
Date of Service December 31, 2023 Assessment & Plan (1) Previous delivery affecting , antepartum: Plan: Plan for repeat section and tubal sterilization. Reviewed consent in office. History of Present Illness Chief Complaint: repeat section, tubal sterilization Primary Care Provider: Katherin Bee, DO 38yo with h/o , desire for repeat and permanent sterilization. GDM on insulin *Wkly NSTs @32wks and Twice wkly @36wks *Serial growth US @28wks *Deliver by [facility] Previous Schedule at 28wk C/S WITH TUBAL SCHEDULED FOR 12/[address] MARTHA GARCIA Weekly NST's @ 36 weeks Hypothyroid *Check TFTs Q4wks Allergies Allergy/AdvReac Type Severity Reaction Status Date / Time adhesive Allergy Mild Skin Verified 12/31/23 11:42 redness Penicillins Allergy Mild Rash Verified 12/31/23 11:42 Home Medications Medication Instructions Recorded Confirmed Type prenat.vits,tim,[id number] 1 tab PO QDL 03/28/21 12/31/23 History acetone (urine) test (Ketone Urine #50 ea 07/02/23 12/31/23 Rx Test strips) blood sugar diagnostic (OneTouch #150 ea 07/02/23 12/31/23 Rx Verio test strips) blood-glucose meter (OneTouch #1 ea 07/02/23 12/31/23 Rx Verio Reflect Meter) lancets 33 gauge (OneTouch Delica #150 ea 07/02/23 12/31/23 Rx Plus Lancet) pen needle, diabetic 32 gauge x #100 ea 07/24/23 12/31/23 Rx /32" (BD Ultra-Fine Aggie Pen Needle) cholecalciferol (vitamin D3) 25 25 mcg PO QAM 12/16/23 12/31/23 History mcg (1,000 unit) tablet (Vitamin D3) fluoxetine 20 mg tablet 20 mg PO QAM 12/16/23 12/31/23 History insulin NPH isoph U-100 human 100 30 unit subcut HS 12/16/23 12/31/23 History unit/mL (3 mL) subcutaneous pen (Humulin N NPH U-100 Insulin KwikPen) magnesium 250 mg tablet 250 mg PO QDL 12/16/23 12/31/23 History levothyroxine 125 mcg tablet 125 mcg PO .8times per week #96 12/21/23 12/31/23 Rx tabs Patient History Medical History History of COVID-19 07/2023--mild symptoms, no symptoms now History of Graves' disease s/p thyroidectomy at age 18/19 History of depression Hypothyroidism Insulin controlled gestational diabetes mellitus (GDM) during Overweight PCOS (polycystic ovarian syndrome) Pruritus of Surgical History H/O colposcopy with cervical biopsy (~2010) H/O LEEP (~2010) H/O total thyroidectomy (~2004) History of anesthesia reaction Perioperative pain with 10/2022 with SAB, "they had to give me extra pain medication during " History of esophagogastroduodenoscopy (EGD) History of surgical procedure on mouth I&D r/t jaw infection History of wisdom tooth extraction S/P section Family History Family/Other Ovarian cancer Prostate cancer Breast cancer Father Myocardial infarction Other Diabetes Hepatitis No family history of adverse response to anesthesia Denies family history of Colonic polyp Social History (Updated 05/18/23 @ 13:23 by Mila Norwood) Smoking Status: Never smoker Second Hand Exposure: No; Do You Dip or Chew Tobacco: No; Hx Alcohol Use: No Hx Substance Use: No Preferred Language: Frisian Communication Ability: Effective Forestry Conservation Worker Required: No Beliefs That Will Affect Care: None marital status: marital status details: Maxi Gardner (31) [phone] Current Living Situation: Spouse and Family Current Living Situation Comment: lives with Spouse, child current occupational status: 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 Feels Safe at Home: Yes Assistive Devices: Contacts and Glasses Review of Systems All systems reviewed & are unremarkable except as noted in HPI & below Physical Exam Constitutional: WD/WN, vitals as above Respiratory: normal respiratory effort, lungs clear to auscultation no respiratory distress Cardiovascular: Rate/Rhythm: regular rate and regular rhythm Gastrointestinal (Abdomen): Inspection/Auscultation: abdomen normal to inspection Percussion/Palpation: abdomen soft; abdomen nontender Gravid. No s/s chorio or abruption. Skin: no rashes, warm and dry Psychiatric: A+Ox3, euthymic affect Coding Level of Care Code None Diagnoses Previous delivery affecting , antepartum O34.219
[2024-01-01] MEDS ORDERED: SODIUM CHLORIDE 0.9% 250 ML IV PRN (01:37)
--- NOTE | 2024-01-01 01:51 | History & Physical Bridge Note ---
Date of Service January 01, 2024 History & Physical Bridge Note I have examined the patient, reviewed the History & Physical and in the interval since the performance of the History & Physical I have noted the following changes of clinical significance: no changes noted
[2024-01-01] MEDS: LACTATED RINGER'S 1,000 ML IV SCH (01:54)
[2024-01-01] MEDS ORDERED: MoRPHine SULFATE PF 1 MG/ML 10 ML AMP/VIAL ONE (02:14)
[2024-01-01] MEDS: ceFAZolin 2000MG 2,000 MG/15 ML SYR IV SCH (02:18)
[2024-01-01] MEDS: CITRIC ACID/SODIUM CITRATE 15 ML UDC PO SCH (02:18)
[2024-01-01 02:19] LABS: Hemoglobin 12.8 g/dl (12.0-16.0); Mean Corpuscular Hemoglobin 30.2 pg (25.0-34.0); Mean Corpuscular Hgb Conc 33.7 g/dL (32.0-36.0); Mean Corpuscular Volume 89.6 fL (80.0-100.0); Mean Platelet Volume 10.2 fL (9.4-12.4); Platelet Count 199 K/uL (130-400); RDW Coefficient of Variation 14.9 % (11.5-14.5); RDW Standard Deviation 48.4 fL (36.4-46.3); Red Blood Count 4.24 M/uL (4.20-5.40); White Blood Count 7.51 K/ul (4.8-10.8)
--- NOTE | 2024-01-01 02:23 | Anesthesiology Consultation ---
Date of Service January 01, 2024 Assessment & Plan Chart Review Chart Review: Acceptable Risk for Surgery Consults Requested none History Surgery Operation Date: 01/01/24 07:30 Proposed Procedures p Section - Tea Nieto DO s with Bilateral Tubal Ligation - Tea Nieto DO Height/Weight Height: 5 ft 4 in Weight: 94.438 kg Allergies Allergy/AdvReac Type Severity Reaction Status Date / Time adhesive Allergy Mild Skin Verified 12/31/23 11:42 redness Penicillins Allergy Mild Rash Verified 12/31/23 11:42 Medications Home Medications Medication Instructions Recorded Confirmed Last Taken prenat.vits,tim,yre-ydvk-kxzwq 1 tab PO QDL 03/28/21 01/01/24 12/31/23 10:00 acetone (urine) test (Ketone Urine #50 ea 07/02/23 12/31/23 Unknown Test strips) blood sugar diagnostic (OneTouch #150 ea 07/02/23 12/31/23 Unknown Verio test strips) blood-glucose meter (OneTouch #1 ea 07/02/23 12/31/23 Unknown Verio Reflect Meter) lancets 33 gauge (OneTouch Delica #150 ea 07/02/23 12/31/23 Unknown Plus Lancet) pen needle, diabetic 32 gauge x #100 ea 07/24/23 12/31/23 Unknown 5/32" (BD Ultra-Fine Aggie Pen Needle) cholecalciferol (vitamin D3) 25 25 mcg PO QAM 12/16/23 01/01/24 12/31/23 09:00 mcg (1,000 unit) tablet (Vitamin D3) fluoxetine 20 mg tablet 20 mg PO QAM 12/16/23 01/01/24 12/31/23 08:00 insulin NPH isoph U-100 human 100 33 unit subcut HS 12/16/23 01/01/24 12/31/23 21:30 unit/mL (3 mL) subcutaneous pen (Humulin N NPH U-100 Insulin KwikPen) magnesium 250 mg tablet 250 mg PO DAILY 12/16/23 01/01/24 12/31/23 11:00 levothyroxine 125 mcg tablet 125 mcg PO .8times per week #96 12/21/23 01/01/24 12/31/23 08:00 tabs Active Medications Generic Name Dose Route Start Last Admin Trade Name Lyndon PRN Reason Stop Dose Admin Citric Acid/Sodium Citrate 30 ml 01/01/24 06:00 01/01/24 02:18 Citric Acid/Sodium Citrate 15 Ml Udc PO 01/01/24 06:01 30 ml PREOP GENIE Administration Lactated Ringer's 1,000 mls @ 999 mls/hr 01/01/24 01:45 01/01/24 01:54 Lr IV 01/01/24 02:45 999 mls/hr .Q1H1M GENIE Administration Cefazolin Sodium 2,000 mg in 15 mls @ 3.75 mls/min 01/01/24 02:00 01/01/24 02:18 Ancef 2000mg IV 01/01/24 05:59 3.75 mls/min PREOP GENIE Administration Protocol NPO Date Last Intake of Fluids: 12/31/23 Time Last Intake of Fluids: 21:30 Date Last Intake of Solids: 12/31/23 Time Last Intake of Solids: 21:30 Past Medical History Medical History History of COVID-19 07/2023--mild symptoms, no symptoms now History of Graves' disease s/p thyroidectomy at age 18/19 History of depression Hypothyroidism Insulin controlled gestational diabetes mellitus (GDM) during Overweight PCOS (polycystic ovarian syndrome) Pruritus of Past Family History Family History Family/Other Ovarian cancer Prostate cancer Breast cancer Father Myocardial infarction Other Diabetes Hepatitis No family history of adverse response to anesthesia Denies family history of Colonic polyp Past Surgical History Surgical History H/O colposcopy with cervical biopsy (~2010) H/O LEEP (~2010) H/O total thyroidectomy (~2004) History of anesthesia reaction Perioperative pain with 10/2022 with SAB, "they had to give me extra pain medication during " History of esophagogastroduodenoscopy (EGD) History of surgical procedure on mouth I&D r/t jaw infection History of wisdom tooth extraction S/P section Social History Smoking Status: Never smoker Do You Dip or Chew Tobacco: No Hx Alcohol Use: No Hx Substance Use: No substance use type: does not use Physical Exam Vital Signs Last Vital Signs Temp 36.8 C 01/01/24 00:53 Pulse 77 01/01/24 02:19 Resp 18 01/01/24 00:53 BP 118/74 01/01/24 00:44 Pulse Ox 100 01/01/24 02:19 Testing Laboratory Results 01/01/24 02:01 01/01/24 02:00 POC Glucose 90
[2024-01-01] MEDS ORDERED: LACTATED RINGER'S 1,000 ML IV SCH ×2 (02:45→04:00)
[2024-01-01] MEDS ORDERED: LACTATED RINGER'S 500 ML IV PRN (02:56)
[2024-01-01] MEDS ORDERED: ePHEDrine sulfate 50 MG/ML AMP IV PRN (02:56)
[2024-01-01] MEDS ORDERED: MoRPHine SULFATE PF 1 MG/ML 10 ML AMP/VIAL INT SPINAL ONE (02:56)
[2024-01-01] MEDS ORDERED: NALOXONE HCL 1 MG in SODIUM CHLORIDE 0.9% 1,000 ML IV PRN (02:56)
[2024-01-01] MEDS ORDERED: NALOXONE HCL 0.4 MG/1 ML VIAL/CARP IV PRN (02:56)
[2024-01-01] MEDS ORDERED: NALBUPHINE HCL 5 MG in SYRINGE 0 ML IV PRN (02:56)
[2024-01-01] MEDS ORDERED: NALOXONE HCL 0.08 MG in SYRINGE 1.8 ML IV PRN (02:56)
[2024-01-01] MEDS ORDERED: DC INTRASPINAL MORPHINE SCH (03:00)
[2024-01-01] MEDS ORDERED: SODIUM CHLORIDE 0.9% 1,000 ML IV SCH (03:00)
[2024-01-01] MEDS ORDERED: NO NARCOTICS OR SEDATIVES SCH (03:00)
[2024-01-01] MEDS ORDERED: PHENYLEPHRINE 100MCG/ML 10ML SYR IV ONE ×2 (03:02→03:42)
[2024-01-01] MEDS ORDERED: OXYTOCIN 10 UNITS/ML VIAL ONE (03:02)
[2024-01-01] MEDS ORDERED: fentaNYL citrate PF 100 MCG/2 ML VIAL ONE (03:16)
[2024-01-01] MEDS ORDERED: ONDANSETRON INJ 2 MG/ML 2 ML VIAL ONE (03:42)
[2024-01-01] MEDS ORDERED: PROMETHAZINE HCL 25 MG in SODIUM CHLORIDE 0.9% 50 ML IV PRN (03:48)
[2024-01-01] MEDS ORDERED: BENZOCAINE 20% SPRY 85 APPLN/85 GM CAN EXT PRN (03:48)
[2024-01-01] MEDS ORDERED: diphenhydrAMINE Capsule 25 MG CAP PO PRN (03:48)
[2024-01-01] MEDS ORDERED: KETOROLAC 30 MG/ML VIAL IV PRN (03:48)
[2024-01-01] MEDS ORDERED: MAGNESIUM HYDROXIDE SUSP 30 ML UDC PO PRN (03:48)
[2024-01-01] MEDS ORDERED: HYDROCORTISONE ACETATE 25 MG SUPP PR PRN (03:48)
[2024-01-01] MEDS ORDERED: SENNA 8.6 MG TAB PO PRN (03:48)
[2024-01-01] MEDS ORDERED: ONDANSETRON INJ 2 MG/ML 2 ML VIAL IV PRN (03:48)
[2024-01-01] MEDS ORDERED: diphenhydrAMINE 50 MG/ML VIAL IV PRN (03:48)
--- NOTE | 2024-01-01 03:51 | Operative Report ---
PG Post Operative Report Pre & Post Diagnosis Operation Date: 01/01/24 07:30 Pre-Op Diagnosis: Repeat Section with Tubal Post-Op Diagnosis: same I identified the patient and participated in the time-out.: Yes Procedure Operation Date: 01/01/24 07:30 Actual Procedures p Section in LD for [facility] at 0300(Bilateral) - Joe Velez MD Surgeon Joe Velez MD Invoice Classification Clerk Nursing Estimated Blood Loss 492 Findings Consistent with Post-Op Diagnosis Specimens Placenta and bilateral fallopian tubes Description of Procedure Patient was taken to the operating room and was proper identified. She was prepped and draped in in the normal sterile fashion with a Betadine splash. A preprocedural timeout was performed. A Pfannenstiel incision was made with a knife. This was carried down to the underlying fascia with the knife. The fascia was entered with a knife and bluntly dissected midline was then entered and placed on stretch to provide adequate room for delivery. Bladder blade was inserted and low transverse uterine incision was made with a knife. Uterine cavity was then entered bluntly and placed on stretch to provide adequate room for delivery. Head of the was delivered without difficulty followed by body and shoulders. Cord was double clamped and cut taken of the waiting nursery staff for evaluation. Cord blood and cord segment obtained. Attention was then turned delivery the placenta was delivered intact three- vessel cord gentle cord traction. Uterus was then exteriorized and several passes were made to remove any remaining membranes with a dry lap. Uterus was wrapped in a wet lap and the hysterotomy was reapproximated with 0 Vicryl continuous running lock stitch. A bilateral salpingectomy was performed with the hand-held LigaSure and complete removal of the fimbriated end was ensured. Excellent hemostasis noted. Posterior cul-de-sac cleaned of clots and debris's. Uterus returned maternal abdomen. Right left paracolic gutters cleaned of clots and debris's. Hysterotomy we inspected and noted to be hemostatic. Fascia subcutaneous and muscle layers were inspected noted to be hemostatic. Fascia was reapproximated with 0 Vicryl and continuous running stitch. Subcutaneous layer was reapproximated with 2-0 plain with continuous running stitch. Skin was reapproximated with 3-0 Vicryl continuous subcuticular stitch. Needle sponge and instrument counts were correct at the completion of the case. Both mother and stable in the immediate postdelivery period. I attest to the content of the Intraoperative Record and any orders documented therein. Any exceptions are noted below. OB Procedure charges OB Charges [id number] Add on Tubal for C/S Procedure Procedure: Procedures Operation Date: 01/01/24 07:30 Actual Procedure Side Surgeon p Section in LD for [facility] at 0300 Bilateral Joe Velez MD Estimated blood loss (mL): 492 Anesthesia type: Spinal Labor Stage Duration Labor - Stage 3 Duration: 1 Total Length of Labor: 4.26
--- NOTE | 2024-01-01 03:51 | Post Operative Brief Note ---
PG Immediate Post Op with CF Date of Surgery January 01, 2024 Pre & Post Diagnosis Operation Date: 01/01/24 07:30 Pre-Op Diagnosis: Repeat Section with Tubal Post-Op Diagnosis: same I identified the patient and participated in the time-out.: Yes Procedure Operation Date: 01/01/24 07:30 Actual Procedures p Section in LD for [facility] at 0300(Bilateral) - Joe Velez MD Surgeon Joe Velez MD Post Hole Digger Nursing Estimated Blood Loss 492 Findings Consistent with Post-Op Diagnosis Specimens Specimen Description: A. Placenta - hold B. Cord Blood C. Right portion of fallopian tube D. Left portion of fallopian tube Drains Herrera Catheter (placed in OR. Drianing clear yellow urine. To be monitored by anesthesia during procedure ) OB Procedure charges OB Charges [id number] Add on Tubal for C/S
[2024-01-01] MEDS: OXYTOCIN 20 UNITS/LR 1,002 ML IV SCH (04:13)
[2024-01-01] MEDS: DIPHTHER/TETAN/PERTUS Vaccine (Tdap, Adol/Adult) 0.5mL IM ONE (04:15)
[2024-01-01] MEDS: CITRIC ACID/SODIUM CITRATE 15 ML UDC ONE (04:16)
[2024-01-01] MEDS ORDERED: HYDROmorphone INJ 0.5 MG/0.5 ML SYR IV PRN (07:15)
[2024-01-01] MEDS ORDERED: PROMETHAZINE HCL 6.25 MG in SODIUM CHLORIDE 0.9% 50 ML IV PRN (07:15)
[2024-01-01] MEDS ORDERED: MEPERIDINE HCL 25 MG/ML CARP/VIAL IV PRN (07:15)
[2024-01-01] MEDS ORDERED: MoRPHine SULFATE 2 MG/ML CARP IV PRN (07:15)
--- NOTE | 2024-01-01 07:37 | Anesthesiology Progress Note ---
Date of Service January 01, 2024 Anesthesia Post Procedure Vital Signs Vital Signs: Temp Pulse Pulse Resp BP BP Pulse Ox 01/01/24 06:42 36.6 C 81 18 124/74 96 01/01/24 06:30 18 01/01/24 06:14 78 117/69 01/01/24 06:13 80 96 01/01/24 06:10 37.0 C 18 01/01/24 06:08 96 01/01/24 06:08 79 01/01/24 06:08 100 H 85/54 L 01/01/24 06:03 84 96 01/01/24 05:58 79 96 01/01/24 05:57 78 117/57 L 01/01/24 05:53 73 95 01/01/24 05:48 81 96 01/01/24 05:47 83 125/60 01/01/24 05:43 92 H 95 01/01/24 05:38 81 95 01/01/24 05:37 75 120/64 01/01/24 05:33 76 96 01/01/24 05:28 77 97 01/01/24 05:27 77 114/63 01/01/24 05:23 92 H 97 01/01/24 05:18 85 98 01/01/24 05:17 81 115/57 L 01/01/24 05:13 91 H 96 01/01/24 05:08 71 97 01/01/24 05:07 134/63 01/01/24 05:03 80 96 01/01/24 05:00 37.0 C 18 01/01/24 05:00 37.0 C 18 01/01/24 04:58 80 97 01/01/24 04:57 79 130/63 01/01/24 04:53 76 97 01/01/24 04:50 18 01/01/24 04:48 75 100 01/01/24 04:45 83 82 L 01/01/24 04:43 77 100 01/01/24 04:40 18 01/01/24 04:38 79 100 01/01/24 04:37 81 124/62 01/01/24 04:33 79 100 01/01/24 04:30 18 01/01/24 04:28 80 100 01/01/24 04:27 81 127/61 01/01/24 04:25 99 H 82 L 01/01/24 04:23 103 H 78 L 01/01/24 04:20 18 01/01/24 04:19 95 H 83 L 01/01/24 04:18 95 H 100 01/01/24 04:17 72 128/71 01/01/24 04:14 83 86 L 01/01/24 04:13 86 99 01/01/24 04:10 18 01/01/24 04:08 80 100 01/01/24 04:02 80 100 01/01/24 04:01 82 91 01/01/24 04:00 37.1 C 18 01/01/24 03:57 83 100 01/01/24 03:56 73 126/69 01/01/24 02:19 77 100 01/01/24 02:14 79 99 01/01/24 02:09 80 98 01/01/24 02:04 77 100 01/01/24 01:59 76 100 01/01/24 01:54 79 100 01/01/24 00:53 36.8 C 18 01/01/24 00:44 98 H 118/74 O2 Del Method 01/01/24 06:42 Room Air 01/01/24 06:30 01/01/24 06:14 01/01/24 06:13 01/01/24 06:10 01/01/24 06:08 01/01/24 06:08 01/01/24 06:08 01/01/24 06:03 01/01/24 05:58 01/01/24 05:57 01/01/24 05:53 01/01/24 05:48 01/01/24 05:47 01/01/24 05:43 01/01/24 05:38 01/01/24 05:37 01/01/24 05:33 01/01/24 05:28 01/01/24 05:27 01/01/24 05:23 01/01/24 05:18 01/01/24 05:17 01/01/24 05:13 01/01/24 05:08 01/01/24 05:07 01/01/24 05:03 01/01/24 05:00 01/01/24 05:00 01/01/24 04:58 01/01/24 04:57 01/01/24 04:53 01/01/24 04:50 01/01/24 04:48 01/01/24 04:45 01/01/24 04:43 01/01/24 04:40 01/01/24 04:38 01/01/24 04:37 01/01/24 04:33 01/01/24 04:30 01/01/24 04:28 01/01/24 04:27 01/01/24 04:25 01/01/24 04:23 01/01/24 04:20 01/01/24 04:19 01/01/24 04:18 01/01/24 04:17 01/01/24 04:14 01/01/24 04:13 01/01/24 04:10 01/01/24 04:08 01/01/24 04:02 01/01/24 04:01 01/01/24 04:00 01/01/24 03:57 01/01/24 03:56 01/01/24 02:19 01/01/24 02:14 01/01/24 02:09 01/01/24 02:04 01/01/24 01:59 01/01/24 01:54 01/01/24 00:53 01/01/24 00:44 Transfer of Care Handoff Completed per policy Notes Mental Status: alert / awake / arousable and participated in evaluation Nausea / Vomiting: adequately controlled Pain: adequately controlled Airway Patency, RR, SpO2: stable & adequate BP & HR: stable & adequate Hydration State: stable & adequate Neuraxial Anesthesia: was administered and sensory block is resolving Anesthetic Complications: no major complications apparent and Pt Satisfied with anesthetic care
[2024-01-01] MEDS: LEVOTHYROXINE SODIUM 125 MCG TABLET PO SCH (08:17)
[2024-01-01] MEDS: ACETAMINOPHEN 1,000 MG/100 ML VIAL IV PRN (08:18)
[2024-01-01] MEDS: ONDANSETRON INJ 2 MG/ML 2 ML VIAL IV PRN (08:20)
[2024-01-01] MEDS: diphenhydrAMINE 50 MG/ML VIAL IV PRN (10:27)
[2024-01-01] MEDS: FLUoxetine HCL 20 MG CAP PO SCH (10:28)
[2024-01-01] MEDS: PRENATAL VITAMIN 1 TAB PO SCH (10:28)
[2024-01-01] MEDS: SIMETHICONE 80 MG CHEW PO SCH (10:28)
[2024-01-01] MEDS: FERROUS SULFATE 325 MG TAB PO SCH (10:28)
[2024-01-01] MEDS: DOCUSATE SODIUM 100 MG CAP PO SCH (10:28)
[2024-01-01] MEDS: KETOROLAC 30 MG/ML VIAL IV PRN (15:21)
[2024-01-01] MEDS: oxyCODONE/ACETAMINOPHEN 5mg/325mg TAB PO PRN (22:55)
[2024-01-01] MEDS: IBUPROFEN 600 MG TAB PO PRN (22:56)
--- NOTE | 2024-01-02 06:14 | Obstetrical Progress Note ---
Date of Service <Pamela Hurtado DO Lorri - Last Filed: 01/02/24 06:18> January 02, 2024 Assessment & Plan <Pamela Hurtado DO Lorri - Last Filed: 01/02/24 06:18> (1) care following delivery: (2) Hypothyroid in , antepartum: (3) Elderly multigravida: (4) Gestational diabetes: Plan Feels well today. Eating well, voiding well. Pain well controlled with ibuprofen + percocet. Routine care; OOB, ambulation, diet progression as tolerated. Anticipate discharge 48-72 hrs after c section delivery, tomorrow or Thursday. After discharge will have 6 week follow-up with Dr. Velez. <Tea Nieto, - Last Filed: 01/02/24 07:33> (1) care following delivery: (2) Hypothyroid in , antepartum: (3) Elderly multigravida: (4) Gestational diabetes: Subjective <Pamela Hurtado DO Lorri - Last Filed: 01/02/24 06:18> Pt is a 38 y/o female who is POD#1 following repeat delivery with tubal on 12/31. complicated by GDM, AMA. Today, pt states she is feeling pretty good. Herrera was removed last night and pt has voided since. She did have night sweats after the section and overnight but states that she has gotten night sweats with her last pregnancies both while and in the period and has known hypothyroid disease s/p thyroidectomy for Graves. Otherwise she states she is feeling totally fine. No questions or complaints. Has ambulated some and is tolerating oral intake. Passing gas. Constitutional: no fever, no chills or no sweats Respiratory: no dyspnea Cardiovascular: no chest pain or no palpitations Breast: no breast pain Genitourinary (female): no dysuria Neurologic: no headache(s) no changes in vision, no headaches Physical Exam <Pamela Hurtado DO Lorri - Last Filed: 01/02/24 06:18> General: Alert, oriented. No acute distress. Cardiac: Regular rate and rhythm, no murmurs, rubs, or gallops. Respiratory: Clear to auscultation bilaterally, no wheezes/rales/rhonchi. No increased work of breathing. Symmetrical chest rise. No respiratory distress. Abdomen: Soft, nontender, nondistended. Bowel sounds present. Uterus: Uterine fundus firm, palpable just below the umbilicus. Surgical scar clean and healing well, Dermabond in place. Lower extremities: No lower extremity edema or swelling. No deep calf pain. Results & Data <Pamela Blackmon DO - Last Filed: 01/02/24 06:18> Vital Signs (Past 12 Hours) Vital Signs Temp Pulse Resp BP Pulse Ox O2 Del Method 01/02/24 00:55 36.6 C 80 18 120/76 97 Room Air 01/01/24 20:20 18 96 01/01/24 19:30 Room Air 01/01/24 19:30 36.8 C 87 18 136/82 97 Room Air 01/01/24 19:15 18 97 01/01/24 18:15 18 97 Supervising Physician <Tea Nieto DO - Last Filed: 01/02/24 07:33> Co-Signing Physician Notes Resident Physician Supervision Note: I was present with Dr. Blackmon during the history and exam. I discussed the case with the resident and agree with the findings and plan as documented in the note. Any exceptions or clarifications are listed here: POD#1 doing well, routine postop care. Documented By: Tea Nieto DO Resident Activity Tracking <Pamela Blackmon DO - Last Filed: 01/02/24 06:18> Resident Involvement: Resident Care Provided Care Provided: OB Delivery
[2024-01-02] MEDS: LEVOTHYROXINE SODIUM 125 MCG TABLET PO SCH (06:27)
[2024-01-02 07:27] LABS: Hematocrit (blood only) 33.5 % (37.0-47.0); Hemoglobin 10.9 g/dl (12.0-16.0)
[2024-01-02] MEDS: SODIUM CHLORIDE 0.65% NA SOLN 45 ML (OCEAN) ONE (12:00)
[2024-01-02] MEDS: bisacodyL 5 MG TABEC PO SCH (21:04)
[2024-01-03] MEDS ORDERED: bisacodyL 10 MG SUPP PR PRN (03:48)
--- NOTE | 2024-01-03 07:34 | Obstetrical Progress Note ---
Date of Service January 03, 2024 Assessment & Plan (1) Elderly multigravida: Postoperative day #2 Karina is doing well incision is clean dry and intact she has no extremity pain she wishes to discharge home prescriptions will be sent to her pharmacy discharge instructions reviewed Subjective Ambulation: ambulating normally Voiding: no voiding problems Passing Gas:: Yes Diet Tolerance:: regular diet Lochia:: Small Physical Exam Constitutional WD/WN, vitals as above well developed and well nourished Respiratory normal respiratory effort, lungs clear to auscultation normal respiratory effort Cardiovascular RRR, no murmur, no edema Gastrointestinal (Abdomen) normal bowel sounds, soft, nontender, no hepatosplenomegaly Results & Data Vital Signs (Past 12 Hours) Vital Signs Temp Pulse Resp BP Pulse Ox O2 Del Method 01/03/24 04:45 97.9 F 73 18 132/84 97 Room Air 01/02/24 21:00 Room Air 01/02/24 21:00 97.7 F 89 18 129/85 100 Room Air
--- NOTE | 2024-01-04 12:29 | Discharge Summary ---
Date of Service January 04, 2024 Admission HPI Per Admitting Provider 38yo with h/o , desire for repeat and permanent sterilization. GDM on insulin *Wkly NSTs @32wks and Twice wkly @36wks *Serial growth US @28wks *Deliver by [facility] Previous Schedule at 28wk C/S WITH TUBAL SCHEDULED FOR 12/[address] MARTHA GARCIA Weekly NST's @ 36 weeks Hypothyroid *Check TFTs Q4wks Discharge Data Consultations 01/01/24 01:44 Consult Anesthesiology Stat Procedures Performed Operation Date: 01/01/24 07:30 Actual Procedures p Section in LD for [facility] at 0300(Bilateral) - Joe Velez MD Hospital Course (1) Encounter for care and examination after delivery: Patient present with spontaneous rupture of membranes with plan for repeat section. Procedure performed without complication. Remained in-house no day 2 without any complications or concerns. Was discharged home in stable condition on day 2. Coding Level of Care Code None Diagnoses Encounter for care and examination after delivery Z39.2
== END 2024-01-03 12:01 | disposition home or self-care (01) | DRG 785 ==
LOC: 4S1 00:21 → 4E2 06:57 → EDSTATUS 08:45

== ENCOUNTER 2024-01-05 17:43 | Observation (INO) ==
--- NOTE | 2024-01-05 18:10 | ED Triage Note ---
Date of Service January 05, 2024 Provider in Triage Author: Clive Allison A History of Present Illness This patient was briefly evaluated while in triage. An abbreviated physical exam was performed. This patient is a 38-year-old Female who presents to the ED for evaluation of headache. Had delivery on Thursday01/01/2024. Patient woke up this morning with a headache, and things seem to be getting worse. Took BP at home 146/91. +Nausea. No known fever. Light sensitive. Mild blurry vision. Physical Exam Limited Triage Exam: VITALS: Vitals are noted on the nurse's note and reviewed by myself. Vital signs stable. GENERAL: Well-developed, well-nourished, white female, who is in no acute distress and resting comfortably. Patient is cooperative with the examination. HEART: Regular rate and rhythm without murmurs gallops or rubs. LUNGS: Clear to auscultation bilaterally without wheezes, rales or rhonchi. No retractions or accessory muscle use. NEURO: Patient was alert and oriented to person place and time. CN II through XII grossly intact. Initial orders for labs and / or imaging were placed and patient was placed in the waiting area until a bed is available. Please see further documentation for the full ED course. MDM / Impression Impression Impression: Headache
[2024-01-05] MEDS: ONDANSETRON 4 MG OD TAB ONE (18:18)
[2024-01-05] MEDS: ONDANSETRON 4 MG OD TAB PO STA (18:19)
--- NOTE | 2024-01-05 18:39 | Emergency Department Note ---
Impression & Plan Headache ADMIT ED Provider Note HPI: History obtained from patient. The patient is a 38-year-old female G2, P2, presents the emergency department on day #4 status post section at 40 weeks gestation that was unremarkable, presents emergency department with chief complaint of headache and concern for high blood pressure. Patient states that she developed a frontal headache that worsened throughout the day today. Patient states she woke up this morning with a headache. Patient states she has not had similar headache in the past. Patient states she took her blood pressure at home and it was in the 140s systolic, she contacted the [facility] office and was sent to the ED to be assessed. On arrival here to the ED the patient appears well, she does not have any focal deficits, she states she does have a moderate frontal headache on arrival. Blood pressure on arrival is 145/95, patient is otherwise hemodynamically stable. Patient denies any history of preeclampsia with her 2 pregnancies. ROS: - Per HPI Differential Diagnosis: Preeclampsia, intracranial hemorrhage, headache in the setting of recent spinal tap, migraine headache, tension headache, meningitis, dural venous sinus thrombus, amongst other potential pathologies. *Outpatient medications and allergy history reviewed. PE: General: Alert HEENT: Normocephalic, trachea midline Eyes: Extraocular eye movement is intact, no scleral erythema Pulmonary: Clear to auscultation bilaterally, no wheezing Cardio: Regular rate and rhythm GI: Abdomen is soft to palpation, section scar appears to be healing appropriately without surrounding erythema or drainage : No suprapubic tenderness MSK: No evidence of trauma or malformation of the extremities, no edema Skin: No evidence of rash Neuro: Alert, no focal deficits, equal bilateral director of math strength, symmetrical facial movements are appreciated, no drift of the upper extremities or lower extremities with testing against gravity Psychiatric: Cooperative INDEPENDENT INTERPRETATIONS: monitor technician: (As interpreted by myself): - An order was placed for continuous cardiac monitoring - Patient was noted to be in sinus rhythm with a rate of 80 EKG: (As interpreted by myself): Rate: 78 Rhythm: Normal sinus rhythm Intervals: Within normal limits ST changes: No ST elevation Time: 1835 Chest x-ray: (As interpreted by myself): No acute disease Interventions provided in ED: -IV labetalol Medical Decision Making: IV was established and lab work obtained, patient was placed on patient monitor. Lab work shows no leukocytosis, hemoglobin is stable 11.9, CMP does not show any critical findings. CT imaging of the head does not show any evidence of acute disease, chest x-ray does not show any evidence of acute disease per my interpretation. Patient was given a dose of IV labetalol here in the ED as she is moderately hypertensive above parameters concerning for preeclampsia. Patient otherwise does not have any focal deficits on my exam. I discussed the patient's presentation with on-call [facility], Dr. Cooper, and at this time given the patient's state with headache and hypertension she recommends admission to the [facility] service for initiation of magnesium and observation overnight. She states she will place these orders for magnesium herself on the inpatient side. On my reassessment the patient appears well, she is in agreement to this plan. Patient was placed for admission in stable condition. Consultants/Discussions held with other healthcare providers: -[facility], Dr. Cooper Disposition discussion with: -Patient and at bedside Diagnosis: 1. Headache, acute 2. state (day #4) 3. Hypertension, acute 4. Anemia Disposition: Admission Fidencio Holden DO Emergency Medicine Past Med/Surg History Problem List (Updated 01/05/24 @ 22:25 by Fidencio Holden DO) Headache (Acute) Encounter for care and examination after delivery Hypothyroid in , antepartum Elderly multigravida Previous delivery affecting , antepartum Gestational diabetes Encounter for anatomic survey Impaired glucose tolerance Infertility Post-surgical hypothyroidism Pelvic pressure in female Insulin controlled gestational diabetes mellitus (GDM) during History of Graves' disease s/p thyroidectomy at age 18/19 Hypothyroidism Overweight PCOS (polycystic ovarian syndrome) Medical History History of COVID-19 07/2023--mild symptoms, no symptoms now History of Graves' disease s/p thyroidectomy at age 18/19 History of depression Hypothyroidism Insulin controlled gestational diabetes mellitus (GDM) during Overweight PCOS (polycystic ovarian syndrome) Pruritus of Surgical History H/O colposcopy with cervical biopsy (~2010) H/O LEEP (~2010) H/O total thyroidectomy (~2004) History of anesthesia reaction Perioperative pain with 10/2022 with [facility], "they had to give me extra pain medication during " History of esophagogastroduodenoscopy (EGD) History of surgical procedure on mouth I&D r/t jaw infection History of wisdom tooth extraction S/P section Family History Family/Other Ovarian cancer Prostate cancer Breast cancer Father Myocardial infarction Other Diabetes Hepatitis No family history of adverse response to anesthesia Denies family history of Colonic polyp Social History (Updated 05/18/23 @ 13:23 by Mila Norwood) Smoking Status: Never smoker Second Hand Exposure: No; Do You Dip or Chew Tobacco: No; Hx Alcohol Use: No Hx Substance Use: No Preferred Language: Swedish Communication Ability: Effective Executive Team Leader Required: No Beliefs That Will Affect Care: None marital status: marital status details: Maxi Gardner (31) [phone] Current Living Situation: Spouse and Family Current Living Situation Comment: lives with Spouse, child current occupational status: 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 Feels Safe at Home: Yes Assistive Devices: Contacts and Glasses Allergies Allergies Allergy/AdvReac Type Severity Reaction Status Date / Time adhesive Allergy Mild Skin Verified 01/05/24 18:30 redness Penicillins Allergy Mild Rash Verified 01/05/24 18:30 Home Meds Home Medications Medication Instructions Recorded Confirmed cholecalciferol (vitamin D3) 25 25 mcg PO QAM 12/16/23 01/05/24 mcg (1,000 unit) tablet (Vitamin D3) fluoxetine 20 mg tablet 20 mg PO QAM 12/16/23 01/05/24 magnesium 250 mg tablet 250 mg PO DAILY 12/16/23 01/05/24 levothyroxine 125 mcg tablet 125 mcg PO UD 01/05/24 01/05/24 vit no.95-ferrous 1 tab PO DAILY 01/05/24 01/05/24 fumarate 28 mg-folic acid 800 mcg tablet () Previous Rx's Medication Instructions Recorded ibuprofen 600 mg tablet 600 mg PO Q8H PRN pain #20 tabs 01/03/24 oxycodone 5 mg tablet 5 mg PO DAILY PRN pain #20 tabs 01/03/24 Results & Data (ED) Vital Signs Vital Signs - 24 hr 01/05/24 18:08 01/05/24 18:37 01/05/24 18:40 Temperature 36.7 C Temperature Source Temporal Artery Scan Pulse Rate 81 80 Pulse Rate [Apical] 79 Pulse Rate from SpO2 Sensor Pulse Rhythm [Apical] Regular Pulse Strength [Apical] Normal Respiratory Rate 18 20 Respiratory Effort / Characteristics Non-Labored Spontaneous Non-Labored Spontaneous Respiratory Depth Normal Normal Respiratory Pattern Regular Blood Pressure 145/95 H 147/97 H Blood Pressure [Left Arm] 147/97 H Blood Pressure Mean 111 Blood Pressure Mean [Left Arm] 113 Blood Pressure Position Sitting Blood Pressure Position [Left Arm] Sitting Pulse Oximetry 98 98 Oxygen Delivery Method Room Air Room Air Sepsis Recent Fever Within 48 Hours No Sepsis New/Unexplained Change in Mental Status N/A Sepsis Action Taken by Nursing No Action Required Oxygen Flow Rate - Titration Pulse Oximetry Post Tiitration 01/05/24 18:41 01/05/24 19:00 01/05/24 19:01 Temperature Temperature Source Pulse Rate 83 74 Pulse Rate [Apical] Pulse Rate from SpO2 Sensor Pulse Rhythm [Apical] Pulse Strength [Apical] Respiratory Rate 12 Respiratory Effort / Characteristics Respiratory Depth Respiratory Pattern Blood Pressure 148/89 H Blood Pressure [Left Arm] Blood Pressure Mean 116 Blood Pressure Mean [Left Arm] Blood Pressure Position Blood Pressure Position [Left Arm] Pulse Oximetry Oxygen Delivery Method Sepsis Recent Fever Within 48 Hours Sepsis New/Unexplained Change in Mental Status Sepsis Action Taken by Nursing Oxygen Flow Rate - Titration Pulse Oximetry Post Tiitration 01/05/24 19:01 01/05/24 19:30 01/05/24 19:30 Temperature Temperature Source Pulse Rate 72 68 Pulse Rate [Apical] Pulse Rate from SpO2 Sensor Pulse Rhythm [Apical] Pulse Strength [Apical] Respiratory Rate 13 Respiratory Effort / Characteristics Respiratory Depth Respiratory Pattern Blood Pressure 134/91 134/91 Blood Pressure [Left Arm] Blood Pressure Mean 104 Blood Pressure Mean [Left Arm] Blood Pressure Position Blood Pressure Position [Left Arm] Pulse Oximetry Oxygen Delivery Method Sepsis Recent Fever Within 48 Hours Sepsis New/Unexplained Change in Mental Status Sepsis Action Taken by Nursing Oxygen Flow Rate - Titration Pulse Oximetry Post Tiitration 01/05/24 19:30 01/05/24 20:00 01/05/24 20:00 Temperature Temperature Source Pulse Rate 72 72 Pulse Rate [Apical] Pulse Rate from SpO2 Sensor 70 Pulse Rhythm [Apical] Pulse Strength [Apical] Respiratory Rate 21 16 Respiratory Effort / Characteristics Respiratory Depth Respiratory Pattern Blood Pressure 130/84 Blood Pressure [Left Arm] Blood Pressure Mean 91 Blood Pressure Mean [Left Arm] Blood Pressure Position Blood Pressure Position [Left Arm] Pulse Oximetry 94 Oxygen Delivery Method Sepsis Recent Fever Within 48 Hours Sepsis New/Unexplained Change in Mental Status Sepsis Action Taken by Nursing Oxygen Flow Rate - Titration Pulse Oximetry Post Tiitration 01/05/24 20:30 01/05/24 20:30 01/05/24 20:46 Temperature Temperature Source Pulse Rate 82 Pulse Rate [Apical] 79 Pulse Rate from SpO2 Sensor 82 Pulse Rhythm [Apical] Regular Pulse Strength [Apical] Normal Respiratory Rate 15 15 Respiratory Effort / Characteristics Non-Labored Respiratory Depth Normal Respiratory Pattern Regular Blood Pressure 122/81 Blood Pressure [Left Arm] 122/81 Blood Pressure Mean 93 Blood Pressure Mean [Left Arm] 94 Blood Pressure Position Blood Pressure Position [Left Arm] Lying Pulse Oximetry 95 95 Oxygen Delivery Method Room Air Sepsis Recent Fever Within 48 Hours Sepsis New/Unexplained Change in Mental Status Sepsis Action Taken by Nursing Oxygen Flow Rate - Titration Pulse Oximetry Post Tiitration 01/05/24 21:48 Temperature Temperature Source Pulse Rate Pulse Rate [Apical] Pulse Rate from SpO2 Sensor Pulse Rhythm [Apical] Pulse Strength [Apical] Respiratory Rate Respiratory Effort / Characteristics Respiratory Depth Respiratory Pattern Blood Pressure Blood Pressure [Left Arm] Blood Pressure Mean Blood Pressure Mean [Left Arm] Blood Pressure Position Blood Pressure Position [Left Arm] Pulse Oximetry 87 L Oxygen Delivery Method Sepsis Recent Fever Within 48 Hours Sepsis New/Unexplained Change in Mental Status Sepsis Action Taken by Nursing Oxygen Flow Rate - Titration 2 Pulse Oximetry Post Tiitration 98 Laboratory Data 01/05/24 18:39 01/05/24 18:39 Lab Results 01/05/24 01/05/24 01/05/24 Range/Units 18:39 20:00 Unknown WBC 5.78 (4.8-10.8) K/ul RBC 3.97 L (4.20-5.40) M/uL Hgb 11.9 L (12.0-16.0) g/dl Hct 35.9 L (37.0-47.0) % MCV 90.4 (80.0-100.0) fL MCH 30.0 (25.0-34.0) pg MCHC 33.1 (32.0-36.0) g/dL RDW Std Deviation 48.9 H (36.4-46.3) fL RDW Coeff of Abby 14.6 H (11.5-14.5) % Plt Count 252 (130-400) K/uL MPV 9.4 (9.4-12.4) fL Immature Gran % (Auto) 0.9 % Neut % (Auto) 62.4 % Lymph % (Auto) 26.3 % [place] % (Auto) 7.3 % Eos % (Auto) 2.8 % Baso % (Auto) 0.3 % Neut # (Auto) 3.61 (1.40-6.50) K/uL Lymph # (Auto) 1.52 (1.20-3.40) K/uL [place] # (Auto) 0.42 (0.11-0.59) K/uL Eos # (Auto) 0.16 (0.00-0.50) K/uL Baso # (Auto) 0.02 (0.00-0.20) K/uL Immature Gran # (Auto) 0.05 (0.01-0.20) K/uL Sodium 138 (136-145) mmol/L Potassium 4.1 (3.5-5.1) mmol/L Chloride 104 (98-107) mmol/L Carbon Dioxide 25 (21-32) mmol/L Anion Gap 9 (3-11) BUN 12 (6-23) mg/dl Creatinine 0.66 (0.6-1.2) mg/dl Est Cr Clr Drug Dosing 126.7 ml/min Est GFR ( Amer) 129.9 ml/min Est GFR (Non-Af Amer) 112.1 ml/min BUN/Creatinine Ratio 18.2 (10-20) Glucose 91 (70-99(Fasting)) mg/dl Calcium 8.4 L (8.6-10.3) mg/dl Magnesium 1.9 (1.7-2.4) mg/dl Total Bilirubin 0.3 (0.2-1.0) mg/dl AST 29 (13-39) U/L ALT 38 (7-52) U/L Alkaline Phosphatase 99 (34-104) U/L Troponin I High Sens 3.7 (0-14) pg/ml Total Protein 6.4 (6.0-8.3) gm/dl Albumin 3.5 (3.4-5.0) gm/dl Globulin 2.9 (2.5-4.0) gm/dl Albumin/Globulin Ratio 1.2 (0.9-2) Lipase 8 L (11-82) U/L Urine Color Yellow Urine Appearance Clear (Clear) Urine pH 7.5 (4.5-7.5) Ur Specific [place] 1.007 (1.000-1.030) Urine Protein Negative (Negative) Urine Glucose (UA) Negative (Negative) Urine Ketones Negative (Negative) Urine Blood 1+ H (Negative) Urine Nitrite Negative (Negative) Urine Bilirubin Negative (Negative) Urine Urobilinogen Negative (Negative) Ur Leukocyte Esterase Negative (Negative) Urine WBC (Auto) 0-5 (0-5) /hpf Urine RBC (Auto) 0-2 (0-2) /hpf U Hyaline Cast (Auto) 0-2 (0-2) /lpf U Epithel Cells (Auto) 0-2 (0-2) /hpf Urine Bacteria (Auto) None Seen (None Seen) Adenovirus (PCR) Not Detected (NotDetected) B. pertussis DNA (PCR) Not Detected (NotDetected) B.parapertussis DNA PCR Not Detected (NotDetected) C. pneumoniae DNA (PCR) Not Detected (NotDetected) Coronavirus OC43 (PCR) Not Detected (NotDetected) Coronavirus HKU1 (PCR) Not Detected (NotDetected) Coronavirus 229E (PCR) Not Detected (NotDetected) SARS-CoV-2 (PCR) Not Detected (NotDetected) Coronavirus NL63 (PCR) Not Detected (NotDetected) Human Metapneumovir PCR Not Detected (NotDetected) Influenza Type A (PCR) Not Detected (NotDetected) Influenza Type B (PCR) Not Detected (NotDetected) M. pneumoniae (PCR) Not Detected (NotDetected) Parainfluenza 1 (PCR) Not Detected (NotDetected) Parainfluenza 2 (PCR) Not Detected (NotDetected) Parainfluenza 3 (PCR) Not Detected (NotDetected) Parainfluenza 4 (PCR) Not Detected (NotDetected) RSV (PCR) Not Detected (NotDetected) Entero/Rhino (PCR) Not Detected (NotDetected) Administered Medications Magnesium Sulfate (Magnesium Sulfate / Wtr) 40 gm in 1,000 mls @ 50 mls/hr IV .Q20H GENIE Stop: 02/04/24 19:29 Last Admin: 01/05/24 20:02 Dose: 50 mls/hr Documented By: RED Co-signed By: IHSAN Discontinued Medications Labetalol HCl (Labetalol Hcl Iv 5 Mg/Ml 20ml) 10 mg IV NOW STA Stop: 01/05/24 18:38 Last Admin: 01/05/24 18:40 Dose: 10 mg Documented By: MARSHA Co-signed By: JUAN Magnesium Sulfate (Mag Sulfate 4gm Bolus From Bag) 4 gm IV ONE ONE Stop: 01/05/24 19:31 Last Admin: 01/05/24 20:04 Dose: 4 gm Documented By: RED Co-signed By: IHSAN Ondansetron HCl (Ondansetron 4 Mg Od Tab) Confirm Administered Dose 4 mg .ROUTE .STK-MED ONE Stop: 01/05/24 18:16 Last Admin: 01/05/24 18:18 Dose: Not Given Documented By: YARON Ondansetron HCl (Ondansetron 4 Mg Od Tab) 4 mg PO NOW STA Stop: 01/05/24 18:18 Last Admin: 01/05/24 18:19 Dose: 4 mg Documented By: YARON Imaging Data Radiologist's Impression: Chest X-Ray 01/05/24 18:12 XR chest 1V portable CLINICAL HISTORY: possible eclampsia COMPARISON STUDY: Chest radiograph January 28, 2008. FINDINGS: Lung volumes are normal. Lungs are clear. There is no pneumothorax or pleural effusion. Cardiac size is at the upper limits of normal. Mediastinal contours are normal. There is no evidence for pulmonary edema. IMPRESSION: 1. No acute cardiopulmonary findings. 2. Borderline cardiomegaly. ACT 112: Negative or not required by law. Electronically signed by: Estevan Guajardo M.D. 01/05/2024 6:[address] 01/05/24 18:36 CT OF THE HEAD WITHOUT CONTRAST CLINICAL HISTORY: TRIPLETT, HTN, post- COMPARISON STUDY: No previous studies for comparison. CT DOSE: 547.75 mGy.cm TECHNIQUE: Helical axial images of the head were obtained without IV contrast. Automated exposure control was utilized for the study. A dose lowering technique was utilized adhering to the principles of ALARA. FINDINGS: No acute intracranial hemorrhage, midline shift or mass effect is present. The ventricular system is unremarkable. The basal cisterns are patent. No extra-axial collections are present. There are no findings to suggest acute dural sinus thrombosis or acute territorial infarct. No significant calvarial abnormalities are present. Visualized portions of the sinuses and mastoid air cells are clear. IMPRESSION: No acute intracranial findings. ACT 112: Negative or not required by law. Electronically signed by: Estevan Guajardo M.D. 01/05/2024 7:01 PM Discharge Plan Visit Data Chief Complaint: Hypertension Stated Complaint: PRECLAMSIA, GAVE THURSDAY, HEADACHE, HIGH BP ED Provider: Fidencio Holden Discharge Problem: Headache Forms Stand Alone Forms: [facility] [place] [facility] Prescriptions Prescriptions: No Action fluoxetine 20 mg Tablet 20 mg PO QAM magnesium 250 mg Tablet 250 mg PO DAILY cholecalciferol (vitamin D3) [Vitamin D3] 25 mcg (1,000 unit) Tablet 25 mcg PO QAM ibuprofen 600 mg tablet 600 mg PO Q8H PRN (Reason: pain) Qty: 20 0RF oxycodone 5 mg tablet 5 mg PO DAILY PRN (Reason: pain) Qty: 20 0RF levothyroxine 125 mcg tablet 125 mcg PO UD Rx Instructions: take 1 tablet daily before breakfast... on day 7 (mondays) take 2 tablets daily before breakfast. PNV cmb#[id number] fumarate-FA [] 28 mg iron- 800 mcg Tablet 1 tab PO DAILY Referrals Referrals: Katherin Bee DO [Primary Care Provider] -
[2024-01-05] MEDS: LABETALOL HCL IV 5 MG/ML 20ML IV STA (18:40)
[2024-01-05 18:51] LABS: Basophils # (auto) 0.02 K/uL (0.00-0.20); Basophils % (auto) 0.3 %; Eosinophils # (auto) 0.16 K/uL (0.00-0.50); Eosinophils % (auto) 2.8 %; Hematocrit (blood only) 35.9 % (37.0-47.0); Hemoglobin 11.9 g/dl (12.0-16.0); Immature Granulocytes # (auto) 0.05 K/uL (0.01-0.20); Immature Granulocytes % (auto) 0.9 %; Lymphocytes # (auto) 1.52 K/uL (1.20-3.40); Lymphocytes % (auto) 26.3 %; Mean Corpuscular Hgb Conc 33.1 g/dL (32.0-36.0); Mean Corpuscular Volume 90.4 fL (80.0-100.0); Mean Platelet Volume 9.4 fL (9.4-12.4); Monocytes # (auto) 0.42 K/uL (0.11-0.59); Monocytes % (auto) 7.3 %; Neutrophils # (auto) 3.61 K/uL (1.40-6.50); Neutrophils % (auto) 62.4 %; Platelet Count 252 K/uL (130-400); RDW Coefficient of Variation 14.6 % (11.5-14.5); RDW Standard Deviation 48.9 fL (36.4-46.3); Red Blood Count 3.97 M/uL (4.20-5.40); White Blood Count 5.78 K/ul (4.8-10.8)
--- NOTE | 2024-01-05 19:00 | XRay Report ---
XR chest 1V portable CLINICAL HISTORY: possible eclampsia COMPARISON STUDY: Chest radiograph January 28, 2008. FINDINGS: Lung volumes are normal. Lungs are clear. There is no pneumothorax or pleural effusion. Car diac size is at the upper limits of normal. Mediastinal contours are normal. There is no evidence for pulmonary edema. IMPRESSION: 1. No acute cardiopulmonary findings. 2. Borderline cardiomegaly. ACT 112: Negative or not required by law. Electronically signed by: Estevan Guajardo M.D. 01/05/2024 6:58 PM
--- NOTE | 2024-01-05 19:03 | CT Scan Report ---
CT OF THE HEAD WITHOUT CONTRAST CLINICAL HISTORY: TRIPLETT, HTN, post- COMPARISON STUDY: No previous studies for comparison. CT DOSE: 547.75 mGy.cm TECHNIQUE: Helical axial images of the head were obtained without IV contrast. Automated exposure con trol was utilized for the study. A dose lowering technique was utilized adhering to the principles o f ALARA. FINDINGS: No acute intracranial hemorrhage, midline shift or mass effect is present. The ventricular system is unremarkable. The basal cisterns are patent. No extra-axial collections are present. There are no findings to suggest acute dural sinus thrombosis or acute territorial infarct. No significant calvarial abnormalities are present. Visualized portions of the sinuses and mastoid air cells are kristen ar. IMPRESSION: No acute intracranial findings. ACT 112: Negative or not required by law. Electronically signed by: Estevan Guajardo M.D. 01/05/2024 7:01 PM
[2024-01-05 19:16] LABS: Albumin Globulin Ratio 1.2 (0.9-2); Albumin Level 3.5 gm/dl (3.4-5.0); BUN Creatinine Ratio 18.2 (10-20); Bilirubin,Total 0.3 mg/dl (0.2-1.0); Calcium 8.4 mg/dl (8.6-10.3); Creatinine Clr Calc Pharmacy 126.7 ml/min; Est GFR (African American) 129.9 ml/min; Est GFR (Non-African American) 112.1 ml/min; Globulin 2.9 gm/dl (2.5-4.0); Magnesium 1.9 mg/dl (1.7-2.4); Potassium 4.1 mmol/L (3.5-5.1); Total Protein 6.4 gm/dl (6.0-8.3); Troponin I High Sensitivity 3.7 pg/ml (0-14)
[2024-01-05] MEDS: MAGNESIUM SULFATE / WTR 40 GM/1,000 ML BAG IV SCH (20:02)
[2024-01-05] MEDS: MAG SULFATE 4GM BOLUS FROM BAG IV ONE (20:04)
[2024-01-05 20:33] LABS: Appearance Urine Clear (Clear); Bacteria Urine Automated None Seen (None Seen); Bilirubin Urine Negative (Negative); Blood Urine 1+ (Negative); Cast Urine Automated 0-2 /lpf (0-2); Color Urine Yellow; Epithelial Cell Urine Auto 0-2 /hpf (0-2); Glucose Urine UA Negative (Negative); Ketones Urine Negative (Negative); Leukocyte Esterase Urine Negative (Negative); Nitrite Urine Negative (Negative); Protein Urine Negative (Negative); RBC Urine Automated 0-2 /hpf (0-2); Specific Gravity Urine 1.007 (1.000-1.030); Urobilinogen Urine Negative (Negative); WBC Urine Automated 0-5 /hpf (0-5); pH Urine 7.5 (4.5-7.5)
[2024-01-05 21:25] LABS: Adenovirus PCR Not Detected (NotDetected); Bordetella parapertussis PCR Not Detected (NotDetected); Bordetella pertussis PCR Not Detected (NotDetected); Chlamydia pneumoniae PCR Not Detected (NotDetected); Coronavirus 229E PCR Not Detected (NotDetected); Coronavirus CoV-2 (COVID19)PCR Not Detected (NotDetected); Coronavirus HKU1 PCR Not Detected (NotDetected); Coronavirus NL63 PCR Not Detected (NotDetected); Coronavirus OC43PCR Not Detected (NotDetected); Human Metapneumovirus PCR Not Detected (NotDetected); Influenza A PCR Not Detected (NotDetected); Influenza B PCR Not Detected (NotDetected); Mycoplasma pneumoniae PCR Not Detected (NotDetected); Parainfluenza Virus 1 PCR Not Detected (NotDetected); Parainfluenza Virus 2 PCR Not Detected (NotDetected); Parainfluenza Virus 3 PCR Not Detected (NotDetected); Parainfluenza Virus 4 PCR Not Detected (NotDetected); Respiratory Syncytial VirusPCR Not Detected (NotDetected); Rhinovirus/Enterovirus PCR Not Detected (NotDetected)
[2024-01-05] MEDS ORDERED: LIDOCAINE 1% LOCAL 20 ML VIAL INFIL PRN (22:29)
[2024-01-05] MEDS ORDERED: LEVOTHYROXINE SODIUM 125 MCG TABLET PO SCH (22:45)
[2024-01-05] MEDS: LACTATED RINGER'S 1,000 ML IV PRN (23:15)
[2024-01-05 23:40] LABS: Hematocrit (blood only) 32.1 % (37.0-47.0); Hemoglobin 10.6 g/dl (12.0-16.0); Mean Corpuscular Hemoglobin 29.8 pg (25.0-34.0); Mean Corpuscular Volume 90.2 fL (80.0-100.0); Mean Platelet Volume 9.2 fL (9.4-12.4); Platelet Count 231 K/uL (130-400); RDW Coefficient of Variation 14.7 % (11.5-14.5); RDW Standard Deviation 48.8 fL (36.4-46.3); Red Blood Count 3.56 M/uL (4.20-5.40); White Blood Count 5.64 K/ul (4.8-10.8)
[2024-01-06] MEDS: IBUPROFEN 600 MG TAB PO PRN (01:06)
--- NOTE | 2024-01-06 01:18 | History & Physical Report ---
Date of Service January 06, 2024 Assessment & Plan (1) Pre-eclampsia in period: Plan: BP's now in normal range since starting MgSO4 in the ER and after one dose of IV labetalol will continue to monitor BP's and treat her nausea/headache/incision pain PRN Admission and Anticipated Discharge Date Admission Date: January 05, 2024 History of Present Illness Primary Care Provider: Katherin Bee DO Patient is a 38yo s/p repeat LTCS on 01/01/24 who had been doing well until this morning when she woke up with a frontal headache. she took Tylenol but the headache did not resolve and so she presented to the ER for evaluation. BP's were noted to be in 140's/90's here. she was given one dose of IV labetalol in the ER and BP normalized. PET labs and viral screen were all normal. CT scan of her head was also normal. she has no other symptoms of pre- eclampsia. the headache makes her nauseous and she has had blurry vision off and on today.headache doesn't get better or resolve when lying flat. she is being admitted for MgSO4 and BP monitoring. Allergies Allergy/AdvReac Type Severity Reaction Status Date / Time adhesive Allergy Mild Skin Verified 01/05/24 18:30 redness Penicillins Allergy Mild Rash Verified 01/05/24 18:30 Home Medications Medication Instructions Recorded Confirmed Type cholecalciferol (vitamin D3) 25 25 mcg PO QAM 12/16/23 01/05/24 History mcg (1,000 unit) tablet (Vitamin D3) fluoxetine 20 mg tablet 20 mg PO QAM 12/16/23 01/05/24 History magnesium 250 mg tablet 250 mg PO DAILY 12/16/23 01/05/24 History ibuprofen 600 mg tablet 600 mg PO Q8H PRN pain #20 tabs 01/03/24 01/05/24 Rx oxycodone 5 mg tablet 5 mg PO DAILY PRN pain #20 tabs 01/03/24 01/05/24 Rx levothyroxine 125 mcg tablet 125 mcg PO UD 01/05/24 01/05/24 History vit no.95-ferrous 1 tab PO DAILY 01/05/24 01/05/24 History fumarate 28 mg-folic acid 800 mcg tablet () Patient History Medical History History of COVID-19 07/2023--mild symptoms, no symptoms now History of Graves' disease s/p thyroidectomy at age 18/19 History of depression Hypothyroidism Insulin controlled gestational diabetes mellitus (GDM) during Overweight PCOS (polycystic ovarian syndrome) Pruritus of Surgical History H/O colposcopy with cervical biopsy (~2010) H/O LEEP (~2010) H/O total thyroidectomy (~2004) History of anesthesia reaction Perioperative pain with 10/2022 with SAB, "they had to give me extra pain medication during " History of esophagogastroduodenoscopy (EGD) History of surgical procedure on mouth I&D r/t jaw infection History of wisdom tooth extraction S/P section Family History Family/Other Ovarian cancer Prostate cancer Breast cancer Father Myocardial infarction Other Diabetes Hepatitis No family history of adverse response to anesthesia Denies family history of Colonic polyp Social History (Updated 05/18/23 @ 13:23 by Mila Norwood) Smoking Status: Never smoker Second Hand Exposure: No; Do You Dip or Chew Tobacco: No; Hx Alcohol Use: No Hx Substance Use: No Preferred Language: [place] Communication Ability: Effective Laundry Tech Required: No Beliefs That Will Affect Care: None marital status: marital status details: Maxi Gardner ([id number]) [phone] Current Living Situation: Spouse and Family Current Living Situation Comment: lives with Spouse, child current occupational status: 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 Feels Safe at Home: Yes Safety Concerns: Feels Safe At This Time Assistive Devices: Glasses Review of Systems All systems reviewed & are unremarkable except as noted in HPI & below Physical Exam Constitutional: WD/WN, vitals as above Gastrointestinal (Abdomen): Inspection/Auscultation: + abdominal surgical incision (dry and intact- no erythema/induration) Psychiatric: A+Ox3, euthymic affect Results & Data Vital Signs (Past 12 Hours) Vital Signs Temp Pulse Pulse Pulse Resp BP BP 01/06/24 01:13 73 01/06/24 01:08 82 01/06/24 01:07 77 125/75 01/06/24 01:03 85 01/06/24 01:00 18 01/06/24 00:49 81 01/06/24 00:44 78 01/06/24 00:39 82 01/06/24 00:34 79 01/06/24 00:29 85 01/06/24 00:24 79 01/06/24 00:19 79 01/06/24 00:14 82 01/06/24 00:09 76 01/06/24 00:07 81 127/78 01/06/24 00:04 84 01/06/24 00:00 18 01/05/24 23:59 87 01/05/24 23:54 86 01/05/24 23:49 84 01/05/24 23:45 82 01/05/24 23:44 91 H 01/05/24 23:39 82 01/05/24 23:38 81 01/05/24 23:34 85 01/05/24 23:32 82 01/05/24 23:29 84 01/05/24 23:18 18 01/05/24 23:18 99.0 F 83 18 137/84 01/05/24 21:48 01/05/24 20:46 79 15 122/81 01/05/24 20:30 122/81 01/05/24 20:30 82 15 01/05/24 20:00 130/84 01/05/24 20:00 72 16 01/05/24 19:30 72 21 01/05/24 19:30 134/91 01/05/24 19:30 68 134/91 01/05/24 19:01 72 13 01/05/24 19:01 148/89 H 01/05/24 19:00 74 12 01/05/24 18:41 83 01/05/24 18:40 80 147/97 H 01/05/24 18:37 79 20 147/97 H 01/05/24 18:08 98.1 F 81 18 145/95 H Pulse Ox O2 Del Method 01/06/24 01:13 100 01/06/24 01:08 100 01/06/24 01:07 01/06/24 01:03 98 01/06/24 01:00 01/06/24 00:49 99 01/06/24 00:44 97 01/06/24 00:39 98 01/06/24 00:34 98 01/06/24 00:29 99 01/06/24 00:24 98 01/06/24 00:19 96 01/06/24 00:14 99 01/06/24 00:09 99 01/06/24 00:07 01/06/24 00:04 92 01/06/24 00:00 01/05/24 23:59 89 L 01/05/24 23:54 89 L 01/05/24 23:49 88 L 01/05/24 23:45 94 01/05/24 23:44 94 01/05/24 23:39 95 01/05/24 23:38 94 01/05/24 23:34 95 01/05/24 23:32 93 01/05/24 23:29 96 01/05/24 23:18 01/05/24 23:18 Room Air 01/05/24 21:48 87 L 01/05/24 20:46 95 Room Air 01/05/24 20:30 01/05/24 20:30 95 01/05/24 20:00 01/05/24 20:00 94 01/05/24 19:30 01/05/24 19:30 01/05/24 19:30 01/05/24 19:01 01/05/24 19:01 01/05/24 19:00 01/05/24 18:41 01/05/24 18:40 01/05/24 18:37 98 Room Air 01/05/24 18:08 98 Room Air Coding Level of Care Code None Diagnoses Pre-eclampsia in period O14.95
[2024-01-06] MEDS ORDERED: ONDANSETRON INJ 2 MG/ML 2 ML VIAL IV PRN (01:26)
[2024-01-06] MEDS ORDERED: LEVOTHYROXINE SODIUM 125 MCG TABLET PO SCH (06:30)
[2024-01-06] MEDS: LEVOTHYROXINE SODIUM 125 MCG TABLET PO SCH (07:08)
[2024-01-06] MEDS: oxyCODONE HCL IR 5 MG TAB (IMMEDIATE RELEASE) PO PRN (07:44)
--- NOTE | 2024-01-06 07:53 | Obstetrical Progress Note ---
Date of Service January 06, 2024 Assessment & Plan (1) Pre-eclampsia in period: Plan: BP's have been normotensive since admission without medications will check Mag level this am s I think visual changes are because of the mag infusion. she will have had 12 hours of MagSO4 at 0800. Admission and Anticipated Discharge Date Admission Date: January 05, 2024 Subjective still complains of mild headache but has not had any Motrin since last evening. c/o visual changes/ blurry vision- "like her eyes keep crossing". no other pre-eclampsia symptoms. Review of Systems Review of Systems: All systems reviewed & are unremarkable except as noted in HPI & below Physical Exam Constitutional: WD/WN, vitals as above Gastrointestinal (Abdomen): incision dry and intact Neurologic: deep tendon reflexes 2+ bilaterally Psychiatric: A+Ox3, euthymic affect Results & Data Vital Signs (Past 12 Hours) Vital Signs Temp Pulse Pulse Pulse Resp BP BP 01/06/24 07:41 90 01/06/24 07:33 88 01/06/24 07:28 84 01/06/24 07:24 98.1 F 18 01/06/24 07:24 01/06/24 07:23 87 01/06/24 07:18 87 01/06/24 07:13 89 01/06/24 07:08 90 137/88 01/06/24 07:03 90 01/06/24 06:58 88 01/06/24 06:53 85 01/06/24 06:48 87 01/06/24 06:43 86 01/06/24 06:38 86 01/06/24 06:33 83 01/06/24 06:28 86 01/06/24 06:23 86 01/06/24 06:18 89 01/06/24 06:13 87 01/06/24 06:08 83 01/06/24 06:07 81 118/74 01/06/24 06:03 93 H 01/06/24 06:00 16 01/06/24 05:58 93 H 01/06/24 05:53 85 01/06/24 05:48 85 01/06/24 05:43 86 01/06/24 05:38 84 01/06/24 05:33 84 01/06/24 05:28 85 01/06/24 05:23 84 01/06/24 05:18 81 01/06/24 05:13 80 01/06/24 05:08 87 01/06/24 05:07 89 119/81 01/06/24 05:03 81 01/06/24 05:00 18 01/06/24 04:58 101 H 01/06/24 04:53 90 01/06/24 04:48 91 H 01/06/24 04:43 93 H 01/06/24 04:38 87 01/06/24 04:33 83 01/06/24 04:28 83 01/06/24 04:23 84 01/06/24 04:18 84 01/06/24 04:13 83 01/06/24 04:08 79 01/06/24 04:07 79 118/74 01/06/24 04:03 84 01/06/24 04:00 18 01/06/24 03:58 77 01/06/24 03:53 74 01/06/24 03:48 84 01/06/24 03:43 83 01/06/24 03:38 84 01/06/24 03:33 92 H 01/06/24 03:28 85 01/06/24 03:23 91 H 01/06/24 03:18 92 H 01/06/24 03:13 84 01/06/24 03:08 79 01/06/24 03:07 81 122/78 01/06/24 03:03 82 01/06/24 03:00 98.4 F 18 01/06/24 03:00 18 01/06/24 02:58 82 01/06/24 02:53 82 01/06/24 02:48 81 01/06/24 02:43 81 01/06/24 02:38 81 01/06/24 02:33 85 01/06/24 02:28 80 01/06/24 02:23 85 01/06/24 02:18 82 01/06/24 02:13 81 01/06/24 02:08 78 01/06/24 02:07 78 125/74 01/06/24 02:03 75 01/06/24 02:00 18 01/06/24 01:58 84 01/06/24 01:53 89 01/06/24 01:48 94 H 01/06/24 01:43 80 05 01:38 80 05/15/24 01:33 76 01/06/24 01:28 73 01/06/24 01:23 77 01/06/24 01:18 70 01/06/24 01:13 73 01/06/24 01:08 82 01/06/24 01:07 77 125/75 01/06/24 01:03 85 01/06/24 01:00 18 01/06/24 00:49 81 01/06/24 00:44 78 01/06/24 00:39 82 01/06/24 00:34 79 01/06/24 00:29 85 01/06/24 00:24 79 01/06/24 00:19 79 01/06/24 00:14 82 01/06/24 00:09 76 01/06/24 00:07 81 127/78 01/06/24 00:04 84 01/06/24 00:00 18 01/05/24 23:59 87 01/05/24 23:54 86 01/05/24 23:49 84 01/05/24 23:45 82 01/05/24 23:44 91 H 01/05/24 23:39 82 01/05/24 23:38 81 01/05/24 23:34 85 01/05/24 23:32 82 01/05/24 23:29 84 01/05/24 23:18 18 01/05/24 23:18 99.0 F 83 18 137/84 01/05/24 23:15 137/82 01/05/24 21:48 01/05/24 20:46 79 15 122/81 01/05/24 20:30 122/81 01/05/24 20:30 82 15 01/05/24 20:00 130/84 01/05/24 20:00 72 16 Pulse Ox O2 Del Method O2 Flow Rate 01/06/24 07:41 97 01/06/24 07:33 100 01/06/24 07:28 98 01/06/24 07:24 01/06/24 07:24 Nasal Cannula 2 01/06/24 07:23 99 01/06/24 07:18 100 01/06/24 07:13 100 01/06/24 07:08 99 01/06/24 07:03 98 01/06/24 06:58 98 01/06/24 06:53 99 01/06/24 06:48 98 01/06/24 06:43 99 01/06/24 06:38 99 01/06/24 06:33 98 01/06/24 06:28 98 01/06/24 06:23 98 01/06/24 06:18 99 01/06/24 06:13 98 01/06/24 06:08 98 01/06/24 06:07 01/06/24 06:03 100 01/06/24 06:00 01/06/24 05:58 98 01/06/24 05:53 98 01/06/24 05:48 98 01/06/24 05:43 98 01/06/24 05:38 98 01/06/24 05:33 99 01/06/24 05:28 98 01/06/24 05:23 99 01/06/24 05:18 99 01/06/24 05:13 99 01/06/24 05:08 100 01/06/24 05:07 01/06/24 05:03 100 01/06/24 05:00 01/06/24 04:58 100 01/06/24 04:53 98 01/06/24 04:48 100 01/06/24 04:43 99 01/06/24 04:38 99 01/06/24 04:33 99 01/06/24 04:28 99 01/06/24 04:23 98 01/06/24 04:18 98 01/06/24 04:13 98 01/06/24 04:08 99 01/06/24 04:07 01/06/24 04:03 98 01/06/24 04:00 01/06/24 03:58 99 01/06/24 03:53 99 01/06/24 03:48 99 01/06/24 03:43 98 01/06/24 03:38 99 01/06/24 03:33 95 01/06/24 03:28 99 01/06/24 03:23 96 01/06/24 03:18 96 01/06/24 03:13 97 01/06/24 03:08 98 01/06/24 03:07 01/06/24 03:03 97 01/06/24 03:00 01/06/24 03:00 01/06/24 02:58 97 01/06/24 02:53 96 01/06/24 02:48 98 01/06/24 02:43 97 01/06/24 02:38 98 01/06/24 02:33 98 01/06/24 02:28 97 01/06/24 02:23 98 01/06/24 02:18 98 01/06/24 02:13 97 01/06/24 02:08 97 01/06/24 02:07 01/06/24 02:03 98 01/06/24 02:00 01/06/24 01:58 100 01/06/24 01:53 99 01/06/24 01:48 99 01/06/24 01:43 99 01/06/24 01:38 99 01/06/24 01:33 99 01/06/24 01:28 100 01/06/24 01:23 100 01/06/24 01:18 100 01/06/24 01:13 100 01/06/24 01:08 100 01/06/24 01:07 01/06/24 01:03 98 01/06/24 01:00 01/06/24 00:49 99 01/06/24 00:44 97 01/06/24 00:39 98 01/06/24 00:34 98 01/06/24 00:29 99 01/06/24 00:24 98 01/06/24 00:19 96 01/06/24 00:14 99 01/06/24 00:09 99 01/06/24 00:07 01/06/24 00:04 92 01/06/24 00:00 01/05/24 23:59 89 L 01/05/24 23:54 89 L 01/05/24 23:49 88 L 01/05/24 23:45 94 01/05/24 23:44 94 01/05/24 23:39 95 01/05/24 23:38 94 01/05/24 23:34 95 01/05/24 23:32 93 01/05/24 23:29 96 01/05/24 23:18 01/05/24 23:18 Room Air 01/05/24 23:15 01/05/24 21:48 87 L 01/05/24 20:46 95 Room Air 01/05/24 20:30 01/05/24 20:30 95 01/05/24 20:00 01/05/24 20:00 94 PG Care Time/CCT Total # of Minutes Spent Total Time Spent with Patient: Total time spent is greater than 50% in coordination of care (as documented) at patient's floor/unit and/or counseling patient: Coding Level of Care Code 32534 SUB INP/OBS CARE 2/35MIN Diagnoses Pre-eclampsia in period O14.95
[2024-01-06] MEDS: FLUoxetine HCL 20 MG CAP PO SCH (08:43)
[2024-01-06] MEDS: PRENATAL VITAMIN 1 TAB PO SCH (08:43)
--- NOTE | 2024-01-06 11:52 | Electrocardiogram Report ---
Test Reason : Blood Pressure : / mmHG Vent. Rate : 078 BPM Atrial Rate : 078 BPM P-R Int : 152 ms QRS Dur : 080 ms QT Int : 368 ms P-R-T Axes : 062 005 023 degrees QTc Int : 419 ms Normal sinus rhythm Normal ECG When compared with ECG of 21-APR-2010 05:43, No significant change was found Confirmed by William Brice ([id number]) on 01/06/2024 11:52:17 AM Referred By: REFERRED SELF Confirmed By:Fred Brice
--- NOTE | 2024-01-06 13:52 | Obstetrical Progress Note ---
Date of Service January 06, 2024 Assessment & Plan (1) Pre-eclampsia in period: Plan: Presented to bedside to evaluate patient due to report of slurred speech and blurry vision. I did not note any speech issues other than the patient sounded to have significant nasal congestion. Noted that she was basically lying flat and elevated to help with drainage. 2+ DTRs noted and so no concern for Mg toxicity. However, mag level pending per nurse order. Overall symptoms appear to be consistent with fairly normal mag response as she feels fatigued and blurriness of vision which is expected with therapeutic mag. No significant neurologic deficits noted. Does have headache behind her left eye which she reports is different than yesterday which was a more severe forehead throbbing headache. Discussed we will continue with mag off for the next hour and if she does not feel improvement will consult medicine for further evaluation. Admission and Anticipated Discharge Date Admission Date: January 05, 2024 Subjective Presented bedside to evaluate patient. Magnesium was stopped by nurse and mag level ordered without notification prior. Reports blurry vision and headache behind her left eye. Vision is blurry bilateral. Feeling overall fatigued. Patient states sounded as if she had significant nasal congestion but did not note any slurred speech or speech issues otherwise. Denying any difficulty breathing. Physical Exam Respiratory: normal respiratory effort; no respiratory distress and no labored breathing Neurologic: 2+ bilateral DTRs patella. Notes normal field of vision. Is able to track object with both eyes equally without issue Results & Data Vital Signs (Past 12 Hours) Vital Signs Temp Pulse Resp BP Pulse Ox O2 Del Method O2 Flow Rate 01/06/24 13:41 87 97 01/06/24 13:36 87 97 01/06/24 13:31 88 97 01/06/24 13:26 89 96 01/06/24 13:23 95 H 93 01/06/24 13:21 93 H 98 01/06/24 13:16 93 H 96 01/06/24 13:11 95 H 96 01/06/24 13:08 106 H 128/90 01/06/24 13:06 90 98 01/06/24 13:01 96 H 99 01/06/24 12:56 93 H 98 01/06/24 12:51 98 H 99 01/06/24 12:46 92 H 98 01/06/24 12:41 87 97 01/06/24 12:36 92 H 98 01/06/24 12:31 79 99 05 12:26 81 99 05 12:21 82 99 05 12:16 94 H 99 01/06/24 12:11 95 H 100 05 12:07 78 111/71 01/06/24 12:06 88 100 01/06/24 12:01 84 100 01/06/24 11:56 89 100 01/06/24 11:51 79 100 01/06/24 11:46 82 99 05 11:41 78 100 01/06/24 11:36 86 100 01/06/24 11:31 78 99 01/06/24 11:26 88 100 01/06/24 11:24 Nasal Cannula 2 01/06/24 11:21 74 99 01/06/24 11:20 Nasal Cannula 2 01/06/24 11:16 77 97 01/06/24 11:11 79 99 01/06/24 11:09 76 94 01/06/24 11:07 77 117/78 01/06/24 11:06 75 95 01/06/24 11:01 81 94 01/06/24 11:00 36.6 C 16 01/06/24 11:00 16 01/06/24 10:56 94 01/06/24 10:56 77 01/06/24 10:56 72 94 01/06/24 10:51 80 94 01/06/24 10:50 79 94 01/06/24 10:46 80 93 01/06/24 10:41 77 94 01/06/24 10:36 88 96 01/06/24 10:33 83 93 05 10:31 80 92 01/06/24 10:26 84 94 01/06/24 10:21 86 96 01/06/24 10:16 85 97 01/06/24 10:11 93 H 98 01/06/24 10:08 80 109/72 05 10:06 83 96 01/06/24 10:01 83 97 01/06/24 09:59 20 05 09:59 20 05 09:56 83 94 05 09:51 81 94 05 09:49 82 94 05 09:46 80 94 05 09:44 77 94 05 09:41 85 93 01/06/24 09:36 81 93 05 09:35 94 H 94 01/06/24 09:31 83 93 01/06/24 09:26 86 94 01/06/24 09:21 85 93 01/06/24 09:16 82 94 01/06/24 09:15 85 94 01/06/24 09:11 84 95 01/06/24 09:10 83 94 01/06/24 09:08 86 97/68 L 01/06/24 09:06 87 96 01/06/24 09:05 81 93 01/06/24 09:01 81 92 01/06/24 09:00 18 01/06/24 08:56 94 01/06/24 08:56 87 01/06/24 08:56 83 94 01/06/24 08:51 88 96 01/06/24 08:46 83 96 01/06/24 08:41 85 96 01/06/24 08:38 89 93 01/06/24 08:36 90 97 01/06/24 08:32 88 117/67 94 01/06/24 08:31 88 94 01/06/24 08:26 80 94 01/06/24 08:23 82 93 01/06/24 08:21 82 94 01/06/24 08:17 82 94 01/06/24 08:16 83 95 01/06/24 08:11 77 97 01/06/24 08:06 85 95 01/06/24 08:01 83 93 01/06/24 08:00 16 01/06/24 08:00 83 93 01/06/24 07:56 83 97 01/06/24 07:54 86 94 01/06/24 07:51 85 98 01/06/24 07:49 87 94 01/06/24 07:46 83 98 01/06/24 07:41 90 97 01/06/24 07:33 88 100 01/06/24 07:28 84 98 01/06/24 07:24 36.7 C 18 01/06/24 07:24 Nasal Cannula 2 01/06/24 07:23 87 99 05 07:18 87 100 01/06/24 07:13 89 100 0524 07:08 90 137/88 99 05 07:03 90 98 01/06/24 06:58 88 98 01/06/24 06:53 85 99 01/06/24 06:48 87 98 01/06/24 06:43 86 99 01/06/24 06:38 86 99 01/06/24 06:33 83 98 01/06/24 06:28 86 98 01/06/24 06:23 86 98 01/06/24 06:18 89 99 01/06/24 06:13 87 98 01/06/24 06:08 83 98 01/06/24 06:07 81 118/74 01/06/24 06:03 93 H 100 01/06/24 06:00 16 01/06/24 05:58 93 H 98 01/06/24 05:53 85 98 01/06/24 05:48 85 98 01/06/24 05:43 86 98 01/06/24 05:38 84 98 01/06/24 05:33 84 99 01/06/24 05:28 85 98 01/06/24 05:23 84 99 01/06/24 05:18 81 99 01/06/24 05:13 80 99 01/06/24 05:08 87 100 01/06/24 05:07 89 119/81 01/06/24 05:03 81 100 01/06/24 05:00 18 01/06/24 04:58 101 H 100 01/06/24 04:53 90 98 01/06/24 04:48 91 H 100 01/06/24 04:43 93 H 99 01/06/24 04:38 87 99 01/06/24 04:33 83 99 01/06/24 04:28 83 99 01/06/24 04:23 84 98 01/06/24 04:18 84 98 01/06/24 04:13 83 98 01/06/24 04:08 79 99 01/06/24 04:07 79 118/74 01/06/24 04:03 84 98 01/06/24 04:00 18 01/06/24 03:58 77 99 01/06/24 03:53 74 99 01/06/24 03:48 84 99 01/06/24 03:43 83 98 01/06/24 03:38 84 99 05/24 03:33 92 H 95 01/06/24 03:28 85 99 01/06/24 03:23 91 H 96 01/06/24 03:18 92 H 96 01/06/24 03:13 84 97 01/06/24 03:08 79 98 01/06/24 03:07 81 122/78 01/06/24 03:03 82 97 01/06/24 03:00 36.9 C 18 01/06/24 03:00 18 01/06/24 02:58 82 97 01/06/24 02:53 82 96 01/06/24 02:48 81 98 01/06/24 02:43 81 97 01/06/24 02:38 81 98 01/06/24 02:33 85 98 01/06/24 02:28 80 97 01/06/24 02:23 85 98 01/06/24 02:18 82 98 01/06/24 02:13 81 97 01/06/24 02:08 78 97 01/06/24 02:07 78 125/74 01/06/24 02:03 75 98 01/06/24 02:00 18 01/06/24 01:58 84 100 01/06/24 01:53 89 99 01/06/24 01:48 94 H 99 PG Care Time/CCT Total # of Minutes Spent Total Time Spent with Patient: Total time spent is greater than 50% in coordination of care (as documented) at patient's floor/unit and/or counseling patient: Coding Level of Care Code None Diagnoses Pre-eclampsia in period O14.95
--- NOTE | 2024-01-06 16:02 | Obstetrical Progress Note ---
Date of Service January 06, 2024 Assessment & Plan Admission and Anticipated Discharge Date Admission Date: January 05, 2024 Subjective Reports gradual improvement since stopping the magnesium. Reports mostly sinus congestion and improving blurry vision at present. Blood pressures have remained normotensive and denying any distinct preeclampsia symptoms. Magnesium level 5.7. Discussed plan for continued monitoring of blood pressures which have been normotensive since shortly after admission. Has not needed antihypertensive medications since admission. Will continue to monitor Results & Data Vital Signs (Past 12 Hours) Vital Signs Temp Pulse Resp BP Pulse Ox O2 Del Method O2 Flow Rate 01/06/24 15:56 80 92 01/06/24 15:52 81 94 01/06/24 15:51 83 95 01/06/24 15:46 81 95 01/06/24 15:41 87 95 01/06/24 15:39 83 120/78 01/06/24 15:36 86 95 01/06/24 15:33 83 94 01/06/24 15:31 84 97 01/06/24 15:30 18 01/06/24 15:30 Room Air 01/06/24 15:26 81 95 01/06/24 15:25 86 94 01/06/24 15:21 84 97 01/06/24 15:16 85 96 01/06/24 15:11 90 99 01/06/24 15:06 85 97 01/06/24 15:01 86 98 01/06/24 14:56 82 94 01/06/24 14:55 82 94 01/06/24 14:51 83 97 01/06/24 14:46 87 98 01/06/24 14:41 83 97 01/06/24 14:36 84 97 01/06/24 14:31 86 98 01/06/24 14:26 92 H 100 01/06/24 14:21 93 H 98 01/06/24 14:16 100 H 100 01/06/24 14:11 79 99 01/06/24 14:06 83 99 01/06/24 14:01 81 100 01/06/24 13:56 85 100 01/06/24 13:51 85 99 01/06/24 13:46 83 96 01/06/24 13:41 87 97 01/06/24 13:36 87 97 01/06/24 13:31 88 97 01/06/24 13:26 89 96 01/06/24 13:23 95 H 93 01/06/24 13:21 93 H 98 01/06/24 13:16 93 H 96 01/06/24 13:11 95 H 96 01/06/24 13:08 106 H 128/90 05 13:06 90 98 01/06/24 13:01 96 H 99 01/06/24 12:56 93 H 98 01/06/24 12:51 98 H 99 01/06/24 12:46 92 H 98 01/06/24 12:41 87 97 01/06/24 12:36 92 H 98 01/06/24 12:31 79 99 01/06/24 12:26 81 99 01/06/24 12:21 82 99 01/06/24 12:16 94 H 99 01/06/24 12:11 95 H 100 01/06/24 12:07 78 111/71 01/06/24 12:06 88 100 01/06/24 12:01 84 100 01/06/24 11:56 89 100 01/06/24 11:51 79 100 01/06/24 11:46 82 99 01/06/24 11:41 78 100 01/06/24 11:36 86 100 01/06/24 11:31 78 99 01/06/24 11:26 88 100 01/06/24 11:24 Nasal Cannula 2 01/06/24 11:21 74 99 01/06/24 11:20 Nasal Cannula 2 01/06/24 11:16 77 97 01/06/24 11:11 79 99 01/06/24 11:09 76 94 01/06/24 11:07 77 117/78 01/06/24 11:06 75 95 01/06/24 11:01 81 94 01/06/24 11:00 36.6 C 16 01/06/24 11:00 16 01/06/24 10:56 94 01/06/24 10:56 77 05 10:56 72 94 01/06/24 10:51 80 94 01/06/24 10:50 79 94 01/06/24 10:46 80 93 01/06/24 10:41 77 94 01/06/24 10:36 88 96 01/06/24 10:33 83 93 01/06/24 10:31 80 92 01/06/24 10:26 84 94 05 10:21 86 96 05 10:16 85 97 05 10:11 93 H 98 05 10:08 80 109/72 05 10:06 83 96 05 10:01 83 97 05 09:59 20 05 09:59 20 01/06/24 09:56 83 94 05 09:51 81 94 05 09:49 82 94 05 09:46 80 94 05 09:44 77 94 05 09:41 85 93 05 09:36 81 93 05 09:35 94 H 94 01/06/24 09:31 83 93 05 09:26 86 94 01/06/24 09:21 85 93 01/06/24 09:16 82 94 01/06/24 09:15 85 94 05 09:11 84 95 05 09:10 83 94 05 09:08 86 97/68 L 01/06/24 09:06 87 96 05 09:05 81 93 05 09:01 81 92 01/06/24 09:00 18 01/06/24 08:56 94 05 08:56 87 05 08:56 83 94 05 08:51 88 96 05 08:46 83 96 05 08:41 85 96 05 08:38 89 93 05 08:36 90 97 05 08:32 88 117/67 94 05 08:31 88 94 05 08:26 80 94 05 08:23 82 93 05 08:21 82 94 05 08:17 82 94 05 08:16 83 95 05 08:11 77 97 05 08:06 85 95 05 08:01 83 93 05 08:00 16 01/06/24 08:00 83 93 05 07:56 83 97 0524 07:54 86 94 01/06/24 07:51 85 98 01/06/24 07:49 87 94 01/06/24 07:46 83 98 01/06/24 07:41 90 97 01/06/24 07:33 88 100 01/06/24 07:28 84 98 01/06/24 07:24 36.7 C 18 01/06/24 07:24 Nasal Cannula 2 01/06/24 07:23 87 99 01/06/24 07:18 87 100 01/06/24 07:13 89 100 01/06/24 07:08 90 137/88 99 01/06/24 07:03 90 98 01/06/24 06:58 88 98 01/06/24 06:53 85 99 01/06/24 06:48 87 98 01/06/24 06:43 86 99 01/06/24 06:38 86 99 01/06/24 06:33 83 98 01/06/24 06:28 86 98 01/06/24 06:23 86 98 01/06/24 06:18 89 99 01/06/24 06:13 87 98 01/06/24 06:08 83 98 01/06/24 06:07 81 118/74 01/06/24 06:03 93 H 100 01/06/24 06:00 16 01/06/24 05:58 93 H 98 01/06/24 05:53 85 98 01/06/24 05:48 85 98 01/06/24 05:43 86 98 01/06/24 05:38 84 98 01/06/24 05:33 84 99 01/06/24 05:28 85 98 01/06/24 05:23 84 99 01/06/24 05:18 81 99 01/06/24 05:13 80 99 01/06/24 05:08 87 100 01/06/24 05:07 89 119/81 01/06/24 05:03 81 100 01/06/24 05:00 18 01/06/24 04:58 101 H 100 01/06/24 04:53 90 98 01/06/24 04:48 91 H 100 01/06/24 04:43 93 H 99 01/06/24 04:38 87 99 01/06/24 04:33 83 99 01/06/24 04:28 83 99 01/06/24 04:23 84 98 01/06/24 04:18 84 98 01/06/24 04:13 83 98 01/06/24 04:08 79 99 01/06/24 04:07 79 118/74 01/06/24 04:03 84 98 01/06/24 04:00 18 PG Care Time/CCT Total # of Minutes Spent Total Time Spent with Patient: Total time spent is greater than 50% in coordination of care (as documented) at patient's floor/unit and/or counseling patient: Coding Level of Care Code None
[2024-01-06] MEDS: PSEUDOEPHEDRINE HCL 30 MG TAB PO ONE (17:22)
--- NOTE | 2024-01-07 16:15 | Discharge Summary ---
Date of Service January 07, 2024 Admission HPI Per Admitting Provider Patient is a 38yo s/p repeat LTCS on 01/01/24 who had been doing well until this morning when she woke up with a frontal headache. she took Tylenol but the headache did not resolve and so she presented to the ER for evaluation. BP's were noted to be in 140's/90's here. she was given one dose of IV labetalol in the ER and BP normalized. PET labs and viral screen were all normal. CT scan of her head was also normal. she has no other symptoms of pre- eclampsia. the headache makes her nauseous and she has had blurry vision off and on today.headache doesn't get better or resolve when lying flat. she is being admitted for MgSO4 and BP monitoring. Admission Exam (Per Admitting) Constitutional WD/WN, vitals as above Gastrointestinal (Abdomen) Inspection/Auscultation: + abdominal surgical incision (dry and intact- no erythema/induration) Neurologic deep tendon reflexes 2+ bilaterally Psychiatric A+Ox3, euthymic affect Discharge Data Consultations 01/05/24 19:18 ED Decision to Admit Stat Hospital Course (1) Pre-eclampsia in period: Presented to bedside to evaluate patient due to report of slurred speech and blurry vision. I did not note any speech issues other than the patient sounded to have significant nasal congestion. Noted that she was basically lying flat and elevated to help with drainage. 2+ DTRs noted and so no concern for Mg toxicity. However, mag level pending per nurse order. Overall symptoms appear to be consistent with fairly normal mag response as she feels fatigued and blurriness of vision which is expected with therapeutic mag. No significant neurologic deficits noted. Does have headache behind her left eye which she reports is different than yesterday which was a more severe forehead throbbing headache. Discussed we will continue with mag off for the next hour and if she does not feel improvement will consult medicine for further evaluation. Discharge Plan Discharge Items Patient Disposition: Home - Self-Care Reason For Visit: PRE-ECLAMPSIA Discharge Diagnosis: PP PIH Activity: Per Instructions section Non-emergency contact: Tool Setter Call non-emergency contact if: your temperature is above 101 Follow-up/Referrals: Katherin Bee DO [Primary Care Provider] - Diet: Regular Addtl Attending Provider Instructions: ACTIVITY RECOMMENDATIONS: * Gradual return to full activity over the next 2-3 weeks. * No lifting - nothing heavier than baby over the next 2-3 weeks. * Do not engage in vigorous exercise, sexual activity or sports until cleared by your physician. * Do not drive or operate any motorized equipment until cleared by your physician. * You may shower/bathe daily. MEDICATIONS: For discomfort or pain, you may use Acetaminophen (Tylenol), Ibuprofen (Advil), or Naproxen (Aleve) following the package directions. For constipation you may use Colace following the package directions. BREAST CARE: If you are not breast feeding: * Wear a supportive bra 24 hours a day for one to two weeks. * Avoid stimulating your breasts and nipples as much as possible during the first few weeks after delivery. * When taking a shower, have the warm water hit your back, not breasts. * When your breasts feel full, apply ice packs. Usually three to four times a day helps ease the discomfort. * Take a mild pain medication (Tylenol / Motrin) when you are uncomfortable. If breast feeding: * Use breast milk to lubricate nipples. Lansinoh cream may be used for sore nipples. You do not need to remove cream prior to breast feeding. If using a different brand of cream, check the label for directions regarding removal of cream prior to nursing. * Wear a supportive bra. * If having problems with breasts or breast feeding, call a sr technical sales consultant or your health care provider. EPISIOTOMY CARE: After delivery, if you have an episiotomy (stitches), the following steps will ease discomfort and aid healing. * For the first 24 hours after delivery, place ice packs next to your episiotomy to help reduce swelling. * After the first 24 hour-period, sitz baths, either portable or in the tub, are suggested. A shower with a shower arm sprayed over the episiotomy may be comforting. * Hansa care should be done after each voiding and bowel movement. Squirt warm water from a plastic bottle over the perineum (region of the body between the anus and urinary opening) and pat dry. * Use Dermoplast to ease discomfort. Shake container. [place] directly over the episiotomy. Place a Tucks on a clean sanitary pad next to your episiotomy. SPECIAL CARE INSTRUCTIONS: When you are discharged from the hospital, it is important for you to follow the instructions listed below: * During the first week at home, you should be able to care for yourself and your baby. In addition, the usual light household activities are encouraged. * Limit your activities to the way you feel. Do not try to clean the house or move furniture. Be sensible. * If you actively engage in sports and have done so up until the time of your delivery, you may resume these activities as soon as you feel able. This may take up to one month or even longer. Use good judgment. * Continue to take your vitamins for at least six weeks after the of your baby. * Your diet need not be limited unless you were on a special diet before your delivery. Breast-feeding mothers need around 2500 calories per day and at least 64-80 ounces of fluid per day (8 to 10 glasses). * You should eat foods from the four major food groups. Crash diets or fad diets are to be avoided. Eating lean meats, fresh fruits and vegetables, low-fat dairy products, high fiber foods and a regular exercise program, will help you get back to your pre- weight without putting your health at risk. * Constipation is sometimes a problem after delivery. Take a mild laxative as needed. If breast feeding, Milk of Magnesia is acceptable to use. You may use a suppository or Fleets enema if no episiotomy. * A daily shower or tub bath is suggested. Be sure to thoroughly and gently dry the perineum. * A bloody vaginal discharge will usually continue until around four weeks post . A small amount of bleeding may continue for as long as six weeks. Vaginal discharge changes from the bright red bleeding after delivery to pink then brownish and salina lly yellowish-pink before becoming white and disappearing. * Bleeding may increase with activity. Your first period may come in 4-8 weeks. If you are breast feeding, your period may be delayed even longer. * Waterproof (sex) can begin whenever both you and your partner feel comfortable and do not have any form of genital infection. It is recommended that you wait at least six weeks for internal and external healing to occur. If you have questions, please talk to your health care practitioner. A condom should be used to prevent infection and . * Foreplay, gentle intercourse and lubrication is very important the first several times to prevent pain. A water-based lubricant such as K-Y jelly or Astroglide may be used. * If you have RH negative blood and your baby is RH positive, you will receive RHOGAM by injection prior to discharge. The nurse will give you a card to keep with you that has the date and place that you received RHOGAM after delivery. * During your care, you had a Rubella screen done to check for the presence of rubella antibodies in your blood. If your test was negative, you will receive a Rubella vaccine prior to discharge. This vaccine may cause a fever, soreness at the injection site and flu-like symptoms. If these symptoms persist, notify your health care practitioner. is not advised for one month after a Rubella vaccine. * Verbalizes understanding of car seat law as reviewed with patient nursing. * Car Seat hand-out given and reviewed with patient by nursing. * Shaken baby information reviewed with patient by nursing. Call you doctor if: * Heavy bleeding (saturating several pads an hour) or passing clots the size of your fist. * A fever >101 degrees F (38.3 degrees C) on two occasions four hours apart and/or chills. * Unusual pain in the pelvic or vaginal areas. * "Baby Blues" lasting longer than two weeks. If you have any questions or concerns, call your health care practitioner at . FOLLOW UP VISIT: * Please call the office at to schedule a 6 week examination. It is important you keep this appointment. It is important for you to make arrangements for either yearly or twice yearly check-ups thereafter. Pending Studies at Discharge: No Stand-Alone Forms: [facility], Smoking Cessation Medications and DC Order Prescriptions: Continued fluoxetine 20 mg Tablet 20 mg PO QAM magnesium 250 mg Tablet 250 mg PO DAILY cholecalciferol (vitamin D3) [Vitamin D3] 25 mcg (1,000 unit) Tablet 25 mcg PO QAM ibuprofen 600 mg tablet 600 mg PO Q8H PRN (Reason: pain) Qty: 20 0RF oxycodone 5 mg tablet 5 mg PO DAILY PRN (Reason: pain) Qty: 20 0RF levothyroxine 125 mcg tablet 125 mcg PO UD Rx Instructions: take 1 tablet daily before breakfast... on day 7 (mondays) take 2 tablets daily before breakfast. PNV [id number]-ferrous fumarate-FA [] 28 mg iron- 800 mcg Tablet 1 tab PO DAILY Discharge Orders: Discharge Order (Routine); Ordered 01/06/24 Ordered By: Joe Velez Admission Data Admit Date/Time: 01/05/24 22:29 Attending Provider: Ally Cooper Admit Provider: Ally Cooper Primary Care Provider: Katherin Bee Other Providers: Ally Cooper Other Interventions: Discharge Summary Assessment (RN) Last Done: 01/06/24 20:42 Coding Level of Care Code 52911 IN/OBS DISCH 30 MIN/LESS Diagnoses Pre-eclampsia in period O14.95
[2024-01-10] MEDS ORDERED: LEVOTHYROXINE SODIUM 125 MCG TABLET PO SCH (06:30)
[2024-01-11] MEDS ORDERED: LEVOTHYROXINE SODIUM 125 MCG TABLET PO SCH (06:30)
== END 2024-01-06 21:02 | disposition home or self-care (01) | DRG 776 ==
LOC: 4S1 17:43 → ED 17:43 → INTOOBSV 22:29 → OBSVTOIN 22:29 → 4S1 22:43